=== PATIENT | female | born 1945 | race Caucasian/White ===

== ENCOUNTER → 2024-02-05 09:37 | Outpatient (REF) | payer OTHER, SELFPAY ==
--- NOTE | 2024-01-28 14:25 | WATCHMAN ---
Watchman
Wathcman Procedure
Referred by:: Santiago Sumner
Date of Referral:: 01/27/24
[id number] Score
Age in Years (65=0, 65-74=1, >/=75=2): > or = 75
Sex (Female=+1): Female
Congestive Heart Failure History (Yes=+1): Yes
Hypertension History (Yes=+1): Yes
Stroke/TIA/Thromboembolism History (Yes=+2): No
Vascular Disease History (Yes=+1): No
Diabetes Mellitus (Yes=+1): No
Score: 5
Anticoagulation Recommendations: Recommend anticoagulation (as validated in nonvalvular fib)
HASBLED Score
Hypertenstion (uncontrolled >160mmHG systolic): Yes
Renal disease (dialysis, transplant, Cr >2.26mg/dL or >200umol/L): No
Liver disease (cirrhosis or bilirubin >2x normal w/ AST/ALT/AP >3x normal: No
Stroke history: No
Prior major bleeding or predisposition to bleeding: Yes
Labile INR(unsable/high INRs,time in therapeutic range <60%): No
Age >65: Yes
Medication usage predisposing to bleeding(ASA, NSAIDS): No
Alcohol use (>/= 8 drinks/week): No
Score: 3
Risk: Alternatives to anticoagulation should be considered: Patient is at high risk for major bleeding
Electrocardiogram
Interpretation: abnormal
Heart Rate: 65
Rhythm: sinus
Interval: first degree heart block
Physician Visits
Client Services Director:: Burak
Date of Visit:: 01/27/24
Primary Animal Caretaker:: Santiago Sumner
Date of Visit:: 01/27/24
PCP:: Yousuf Bobo
Oral Anticoagulation
Post procedure anticoagulation plan:: Maintain full dose Xarelto 20 mg daily without aspirin until 3-month transesophageal echocardiogram and at that point if the device is well-seated with no significant leak we can stop Xarelto in favor of aspirin
81 mg daily. Additionally, she lives alone and would envision we would keep her overnight after the procedure
Plan
Plan:: 01/27/2024: Consult received.
01/28/2024: Spoke to patient. Obtained recent labs and faxed to CT scan department CT scan 02/04. Will plan to review at heart Team meeting on 02/09. Allowed for and answered questions.
== END ==
LOC: RAD 09:37
PROVIDERS: ATTENDING PHYSICIAN Internal Medicine Cardiovascular Disease; FAMILY PHYSICIAN Family Medicine
DX: I48.19 Other persistent atrial fibrillation (principal)
CPT/HCPCS: 75572; Q9967

== ENCOUNTER 2024-04-20 06:05 | Inpatient (IN) | payer OTHER, SELFPAY ==
[2024-04-15 11:36] VITALS: BMI 36.8
[2024-04-15 11:45] LABS: % Basophils 0.6 % (0-2); % Eosinophils 1.2 % (0-6); % Immature Granulocytes 0.3 % (0-0.5); % Lymphocytes 16.1 % (20.5-51.1); % Monocytes 6.7 % (1.7-9.3); % Neutrophils 75.1 % (42.2-75.2); Absolute Basophils 0.1 10^3/uL (0-0.2); Absolute Eosinophils 0.1 10^3/uL (0-0.7); Absolute Lymphocytes 1.4 10^3/uL (1.2-3.4); Absolute Monocytes 0.6 10^3/uL (0.1-0.6); Absolute Neutrophils 6.5 10^3/uL (1.4-6.5); Hematocrit 38.7 % (37.0-47.0); Hemoglobin 12.6 g/dL (12.0-16.0); Mean Corp Hgb Conc. 32.6 g/dL (33.0-37.0); Mean Corpuscular Hgb 28.5 pg (27.0-31.0); Mean Corpuscular Volume 87.6 fL (81.0-99.0); Mean Platelet Volume 11.1 fL (7.4-10.4); Nucleated Red Blood Cells % 0 %; Platelet Count 277 10^3/uL (130-400); Red Blood Cell Count 4.42 10^6/uL (4.20-5.40); Red Cell Dist. Width 13.8 % (11.5-14.5); White Blood Cell Count 8.6 10^3/uL (4.8-10.8)
[2024-04-15 11:53] LABS: INR 1.39; PT 17.1 Sec (11.4-14.6)
[2024-04-15 12:10] LABS: ALT (SGPT) 16 U/L (0-35); AST (SGOT) 20 U/L (14-36); Albumin 4.3 g/dl (3.5-5.0); Alkaline Phosphatase 87 U/L (38-126); Blood Urea Nitrogen 27 mg/dl (7-17); Calcium 9.8 mg/dl (8.4-10.2); Carbon Dioxide 21 mmol/L (22-30); Chloride 107 mmol/L (98-107); Estimated Creatinine Clearance 46 ml/min; Glucose 96 mg/dl (70-99); Potassium 4.3 mmol/L (3.5-5.1); Sodium 141 mmol/L (135-145); Total Bilirubin 0.5 mg/dl (0.2-1.3); Total Protein 6.5 g/dl (6.3-8.2); eGFR 51.75
[2024-04-20] VITALS (22 sets, daily range): BP systolic 139–181; BP diastolic 50–84; BMI 36.8
[2024-04-20 09:03] LABS: ACT-LR - POC 392 Seconds (116-155)
[2024-04-20] MEDS: ANESTHETIC LOZENGE 1 LOZENGE PO ×3 (11:11→18:31)
--- NOTE | 2024-04-20 13:03 | PTCARENOTE ---
patient received from the clinical genetics laboratory chief. Patient flat in bed. Right groin site CDI, site is soft. Doppler pedal pulses. Dependent edema. She is alert, awakens easily. Voice hoarse. SR with a 1st degree HB HR 72, BP 165/67, call pedersen in reach
--- NOTE | 2024-04-20 15:42 | PTCARENOTE ---
Figure 8 sutures removed, sterile dressing applied to right groin.
--- NOTE | 2024-04-20 16:10 | WATCHMAN.MD ---
Watchman Implant
-
WATCHMAN LEFT ATRIAL APPENDAGE CLOSURE DEVICE REPORT
Date: April 20, 2024
Referring Process Assistant: Dr Carmelo Andres
Primary Care Provider: Dr Yousuf Bobo
History:
She has a history of persistent atrial fibrillation for which she underwent PVI on February 16, 2019 and due to recurrences had repeat PVI 05/21/19. She underwent implantation of a loop recorder June 2023 at [facility] which is demonstrated low
burden recurrences of atrial fibrillation. She has also had recurrent lower GI bleeding and was referred for watchman left atrial appendage occlusion for which she has undergone extensive evaluation and presents today for watchman implantation.
Additionally she has medical history of COPD, heart failure with preserved ejection fraction, chronic kidney disease, hypertension, anemia, obstructive sleep apnea.
Watchman Team:
ADELAIDA: Dr Carmelo Thayer
Transesophageal echocardiogram could not be successfully performed despite several attempts which included attempts from cardiology, CT surgical anesthesia and gastroenterology.
Transseptal steam power plant operator: Dr Santiago Sumner M.D.
Implanter: No implantation attempted
Procedure: Attempted Watchman left atrial appendage closure.
Heparin was administered to goal ACT 350-400 seconds.
Given the transesophageal echo could not be passed despite multiple attempts. Implantation of Watchman device is imaged via intracardiac echocardiogram. Intracardiac ultrasound catheter was placed in the right atrium identifying the intraatrial
septum for transseptal puncture.
Transseptal puncture was performed By Dr Santiago Sumner utilizing RF energy [employer] system. This entailed advancing a sheath with dilator and wire into the superior vena cava and withdrawing both (monitoring intracardiac ultrasound, fluoroscopy
and tip pressure) with the tip oriented toward the atrial septum. The fossa ovalis was engaged (indicated by sudden displacement of the sheath tip as well as tenting of the fossa seen on intracardiac ultrasound). Left atrial catheter position was
confirmed by echocardiographic imaging, pressure monitoring (LA mean pressure) and fluoroscopy. The sheath was advanced over the dilator and positioned in the left atrium. The sheath and dilator were then withdrawn back into the right atrium and
the transseptal wire was left in position. Intracardiac echocardiogram and fluoroscopy were then utilized to follow the wire across the interatrial septum removing the ice catheter from the right atrium into the left atrium where multiple views of
the left atrial appendage were obtained and assessed. This sheath and dilator were then repositioned within the left atrium. Dilator was withdrawn. A 5 [place]an pigtail catheter was then advanced over the wire into the left atrium where angiogram
of the left atrial appendage was performed in several views. Despite a mid�mid transseptal the double curve sheath would not sit well at the ostium of the left atrial appendage despite multiple maneuvers and attempts. The double curve sheath was
then switched out for the single curve but still adequate positioning could not be obtained. At this point it was decided to reattempt transseptal puncture much lower on the interatrial septum. This was achieved and despite reintroduction of the
single curve sheath at a very low and mid to anterior position along the interatrial septum still adequate sheath position could not be obtained. There is no attempt to place a Watchman device. Consensus of the procedure group is that watchman
implantation in this particular patient with this anatomy is unlikely to be successful.
Impression:
- Attempted, but unable to pass transesophageal echoprobe
- Transeptal puncture.
- Intracardiac echocardiogram.
- Left atrial appendage angiogram
- No attempted deployment of Watchman left atrial appendage occlusion device.
Recommendations:
- Given inability to place watchman, maintain current anticoagulation strategy
- Have already discussed with patient's daughter and will later discussed with patient stand-alone CT surgical AtriCure left atrial appendage clipping as an alternative strategy.
If patient is agreeable we will arrange for outpatient consultation with CT surgery.
Continue cardiovascular care with Dr. De La Cruz
cc:
Dr Carmelo Andres
Dr Yousuf Bobo
[2024-04-20] MEDS: LIPITOR 10 MG PO (18:03)
--- NOTE | 2024-04-20 18:33 | PTCARENOTE ---
Patient out of bed, walked the bathroom, voided. Right groin has a scant amount of sanguinous drainage. Patient in the chair for dinner. Voice remains hoarse and throat is sore. Cepacol lozenges given as needed
--- NOTE | 2024-04-20 19:00 | PTCARENOTE ---
Received patient at change of shift. Patient awake, alert, and oriented, sitting in the chair eating dinner. Right groin site with some oozing. Area outlined. Soft, ecchymotic with no hematoma. Patient states she 'always bleeds.' BP 181/63, SB/NSR
50s-60s, 93% on room air. Patient c/o sore throat-- gave ice chips. Pt shared it helped. Discussed plan of care. Patient verbalized understanding. Call pedersen within reach.
[2024-04-20] MEDS: SYMBICORT 80/4.5 MCG INHALER 2 PUFF INH (19:26)
[2024-04-20] MEDS: SPIRIVA RESPIMAT 2.5 MCG 2 PUFF INH (19:27)
[2024-04-20] MEDS: ISMO 10 MG PO (19:53)
[2024-04-20] MEDS: APRESOLINE 100 MG PO (19:54)
--- NOTE | 2024-04-20 23:27 | PTCARENOTE ---
Patient's groin site oozing. RN held pressure for 15 minutes. Changed dressing with hemostasis pad, sterile gauze and tegaderm.
[2024-04-21 03:40] VITALS: BP 168/60
[2024-04-21 04:23] LABS: Hematocrit 35.1 % (37.0-47.0); Hemoglobin 11.5 g/dL (12.0-16.0); Mean Corp Hgb Conc. 32.8 g/dL (33.0-37.0); Mean Corpuscular Hgb 29.4 pg (27.0-31.0); Mean Corpuscular Volume 89.8 fL (81.0-99.0); Mean Platelet Volume 11.3 fL (7.4-10.4); Platelet Count 230 10^3/uL (130-400); Red Blood Cell Count 3.91 10^6/uL (4.20-5.40); Red Cell Dist. Width 13.5 % (11.5-14.5); White Blood Cell Count 12.5 10^3/uL (4.8-10.8)
[2024-04-21 04:31] LABS: Blood Urea Nitrogen 31 mg/dl (7-17); Calcium 9.4 mg/dl (8.4-10.2); Carbon Dioxide 20 mmol/L (22-30); Chloride 110 mmol/L (98-107); Estimated Creatinine Clearance 56 ml/min; Glucose 114 mg/dl (70-99); Magnesium 2.2 mg/dl (1.6-2.3); Potassium 4.5 mmol/L (3.5-5.1); Sodium 141 mmol/L (135-145); eGFR > 60.00
--- NOTE | 2024-04-21 05:21 | PTCARENOTE ---
Patient resting. Right groin site clean, dry, and intact. Soft, no hematoma. Ecchymotic.
--- NOTE | 2024-04-21 07:21 | W.PN.CARDCBS ---
Addendum entered and electronically signed by Santiago Sumner MD 04/21/24 10:43:
Patient seen, interviewed and examined by me.
Well-appearing, no acute distress
Regular rate and rhythm with normal S1 and S2, no S3 no S4. There is a grade 1/6 apical holosystolic murmur and no rubs. PMI is normally placed.
Lungs are clear to auscultation bilaterally without wheezes rales or rhonchi.
Abdomen soft nontender nondistended with normoactive bowel sounds
Extremities show trace pretibial edema bilaterally no clubbing or cyanosis.
Neurologic exam is grossly nonfocal.
I have discussed with the patient and her daughter the results of yesterday's procedure and our inability to even attempt to place a Watchman left atrial appendage occlusion device.
I have spoken to them both about considering alternative means to exclude the left atrial appendage. I discussed the possibility for stand-alone epicardial AtriCure and we will be referring her to cardiothoracic surgery for an outpatient
consultation.
In the meantime she should maintain uninterrupted oral anticoagulation unless he recurs with significant GI bleeding.
I also explained to her the inability for several different specialists to successfully place a transesophageal echocardiogram probe. She is not reported experiencing any difficulty with speech or swallow and it was felt by anesthesia that the
cause is likely simply a very small oral airway. Should she develop any dysphagia or odynophagia or any other concerns regarding this, she would need further evaluation.
All of her questions have been answered. She is stable for discharge to home today.
Also, of note I did check a right groin ultrasound post procedure which finds the common femoral artery is unremarkable with multiphasic waveforms. The common femoral vein is compressible and patent with expected phasicity. No hematomas,
pseudoaneurysm, or arteriovenous fistula.
Original Note:
Today's Communication / Plan
-
Resume xarelto tonight
CT surgery followup for BUCK clip
home today
Impression / Plan
-
PCP: Yousuf Bobo MD
CDY: Carmelo Andres MD
78 y/o, PMH of persistent atrial fibrillation for which she underwent PVI on February 16, 2019 and due to recurrences had repeat PVI 05/21/19. She underwent implantation of a loop recorder June 2023 at [facility] which is demonstrated low burden
recurrences of atrial fibrillation. She has also had recurrent lower GI bleeding and was referred for watchman left atrial appendage occlusion for which she has undergone extensive evaluation and presents today for watchman implantation.
04/20- Procedure- ADELAIDA could not be successfully performed despite several attempts which included attempts from cardiology, CT surgical anesthesia and gastroenterology.
Watchman implant aborted
IMPRESSION:
Persistent AFib w/PVI x2 (01/2019, 04/2019)
Recurrent LGI bleeding
Attempted Watchman device implant, 04/20/24
Chronic diastolic HFpEF
HTN
HLD
COPD
LUIZ
Ambulatory dysfunction/gait disturbance
Chronic BLE lymphedema
R BrCA, s/p lumpectomy/LND (2015)
PLAN:
Attempted but unable to pass ADELAIDA probe for Watchman implant, procedure aborted
Tele- NSR w/1st degAVB, intermittent AFib
right groin with small HT post suturing, with some expansion in recovery
Groin US with small HT but no pseudoaneurysm- stable today
Xarelto held last evening- will resume tonight
Continue other meds as before
CT surgery consult for possible BUCK clipping- appt made 04/28 at 9AM w/Mendoza
Modestly elevated BP overnight- has not had meds for 2 days- RN giving them now and will monitor
Followup with Dr. Andres as scheduled
home today
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
Subjective
Date of Service: April 21, 2024
Denies cp/palps/dyspnea
oob ambulating
groin site without pain
Objective
Labs:
04/21/24 03:53
04/21/24 03:54
Labs
Hgb 11.5 g/dL (12.0-16.0) L 04/21/24 03:53
Hct 35.1 % (37.0-47.0) L 04/21/24 03:53
Plt Count 230 10^3/uL (130-400) 04/21/24 03:53
PT 17.1 Sec (11.4-14.6) H 04/15/24 10:40
INR 1.39 04/15/24 10:40
Sodium 141 mmol/L (135-145) 04/21/24 03:54
Potassium 4.5 mmol/L (3.5-5.1) 04/21/24 03:54
BUN 31 mg/dl (7-17) H 04/21/24 03:54
Creatinine 0.9 mg/dL (0.6-1.0) 04/21/24 03:54
Glucose 114 mg/dl (70-99) H 04/21/24 03:54
Vital Signs and I&O:
Vital Signs
Temp Pulse Resp BP Pulse Ox
97.8 F 47 18 168/60 92
04/21/24 03:43 04/21/24 06:00 04/21/24 03:43 04/21/24 03:40 04/21/24 03:43
Vital Signs
Temp Pulse Resp BP Pulse Ox
97.8 F 47 18 168/60 92
04/21/24 03:43 04/21/24 06:00 04/21/24 03:43 04/21/24 03:40 04/21/24 03:43
Intake & Output
04/19/24 04/20/24 04/21/24 04/22/24
06:59 06:59 06:59 06:59
Intake Total 480 / 480
Output Total 200 / 200
Balance 280 / 280
Physical Exam
Physical Exam
AAOx3, MAEE
RRR S1 S2 no murmurs
CTA bilat, non labored
soft abd, + bs
right groin site w/ecchymosis but non tender, soft, no oozing
bilat extremities w/chronic lymphedma and erythema as before, doppler pulses
[2024-04-21] MEDS: SYMBICORT 80/4.5 MCG INHALER 2 PUFF INH (07:29)
[2024-04-21] MEDS: SPIRIVA RESPIMAT 2.5 MCG 2 PUFF INH (07:29)
[2024-04-21 07:41] VITALS: BP 151/58
[2024-04-21] MEDS: ISMO 10 MG PO (08:16)
[2024-04-21] MEDS: APRESOLINE 100 MG PO (08:16)
[2024-04-21] MEDS: COZAAR 100 MG PO (08:16)
[2024-04-21] MEDS: ARIMIDEX 1 MG PO (08:16)
[2024-04-21] MEDS: FEOSOL 325 MG PO (08:16)
[2024-04-21] MEDS: PROCARDIA XL (EXTENDED RELEASE) 30 MG PO (08:16)
--- NOTE | 2024-04-21 09:59 | W.DS.TRANS ---
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
-
Discharge Instructions:
Discharge Diagnosis/Procedures AFib, s/p attempted Watchman device implant
Diet Low Cholesterol
Driving Restrictions No driving for 24 hours
Instructions:
Stand-Alone Forms: DC Instructions- Cath/EP Lab
Changes to Home Medications: No
Discharge Medications:
DC Medications w/original date entered in [employer]
anastrozole 1 mg tablet 1 mg PO DAILY 02/16/19
bumetanide 1 mg tablet 1 mg PO SUTUTHSA 04/12/24
ferrous sulfate 325 mg (65 mg iron) tablet 325 mg PO DAILY 04/12/24
fluticasone fur. 100 mcg-umeclid 62.5 mcg-vilant 25 mcg inhalat.powder (Trelegy Ellipta) 1 inh inhalation DAILY 04/12/24
hydralazine 100 mg tablet 100 mg PO BID 04/12/24
isosorbide mononitrate 10 mg tablet 10 mg PO BID 04/12/24
losartan 100 mg tablet 100 mg PO DAILY 04/12/24
lovastatin 40 mg tablet 40 mg PO QPM 04/12/24
nifedipine 30 mg tablet,extended release 30 mg PO DAILY 04/12/24
rivaroxaban 20 mg tablet (Xarelto) 20 mg PO QPM 04/12/24
Home Medication Changes
Pending Results: No
[2024-04-21 11:15] VITALS: BP 128/56
--- NOTE | 2024-04-21 13:09 | CM ---
CM following for DC planning needs.
Pt. for DC today; there are no identified DC needs.
Pt. is indep. at baseline.
Plan is for home, no needs.
== END 2024-04-21 11:36 | disposition home or self-care (01) | DRG 309 ==
LOC: IVU 06:05
PROVIDERS: Nurse Practitioner; ADMITTING PHYSICIAN Internal Medicine Cardiovascular Disease; FAMILY PHYSICIAN Family Medicine
DX: I48.19 Other persistent atrial fibrillation (principal); I13.0 Hypertensive heart and chronic kidney disease with heart failure and stage 1 through stage 4 chronic kidney disease, or unspecified chronic kidney disease; I50.32 Chronic diastolic (congestive) heart failure; D63.1 Anemia in chronic kidney disease; D50.9 Iron deficiency anemia, unspecified; E04.2 Nontoxic multinodular goiter; J44.9 Chronic obstructive pulmonary disease, unspecified; N18.30 Chronic kidney disease, stage 3 unspecified; I48.92 Unspecified atrial flutter; I44.0 Atrioventricular block, first degree; E78.5 Hyperlipidemia, unspecified; G47.33 Obstructive sleep apnea (adult) (pediatric); I89.0 Lymphedema, not elsewhere classified; K44.9 Diaphragmatic hernia without obstruction or gangrene; R26.2 Difficulty in walking, not elsewhere classified; K57.30 Diverticulosis of large intestine without perforation or abscess without bleeding; Z53.8 Procedure and treatment not carried out for other reasons; Z79.01 Long term (current) use of anticoagulants; Z79.899 Other long term (current) drug therapy; Z87.19 Personal history of other diseases of the digestive system; Z85.3 Personal history of malignant neoplasm of breast; Z92.3 Personal history of irradiation; Z85.820 Personal history of malignant melanoma of skin
CPT/HCPCS: 33340; 36415; 80048; 80053; 83735; 85025; 85027; 85347; 85610; 86850; 86900; 86901; 87070; 93005; 93312; 93355; 93926; 94640; C1759; C1892; C1894; Q9967

== ENCOUNTER 2024-05-21 05:00 | Inpatient (IN) | payer OTHER, SELFPAY ==
[2024-05-18 08:33] VITALS: BMI 35.9
[2024-05-18 09:09] LABS: % Basophils 0.7 % (0-2); % Eosinophils 2.7 % (0-6); % Immature Granulocytes 0.7 % (0-0.5); % Lymphocytes 19.1 % (20.5-51.1); % Monocytes 6.3 % (1.7-9.3); % Neutrophils 70.5 % (42.2-75.2); Absolute Basophils 0.1 10^3/uL (0-0.2); Absolute Eosinophils 0.2 10^3/uL (0-0.7); Absolute Immature Granulocytes 0.1 10^3/uL (0-0.05); Absolute Lymphocytes 1.4 10^3/uL (1.2-3.4); Absolute Monocytes 0.5 10^3/uL (0.1-0.6); Absolute Neutrophils 5.2 10^3/uL (1.4-6.5); Hematocrit 37.4 % (37.0-47.0); Hemoglobin 12.2 g/dL (12.0-16.0); Mean Corp Hgb Conc. 32.6 g/dL (33.0-37.0); Mean Corpuscular Hgb 29.2 pg (27.0-31.0); Mean Corpuscular Volume 89.5 fL (81.0-99.0); Mean Platelet Volume 10.7 fL (7.4-10.4); Nucleated Red Blood Cells % 0 %; Platelet Count 306 10^3/uL (130-400); Red Blood Cell Count 4.18 10^6/uL (4.20-5.40); Red Cell Dist. Width 14.6 % (11.5-14.5); White Blood Cell Count 7.4 10^3/uL (4.8-10.8)
[2024-05-18 09:18] LABS: INR 1.85; PT 21.5 Sec (11.4-14.6)
[2024-05-18 09:19] LABS: APTT 46.1 Sec (23.4-35.0)
[2024-05-18 10:01] LABS: ALT (SGPT) 15 U/L (0-35); AST (SGOT) 19 U/L (14-36); Albumin 3.9 g/dl (3.5-5.0); Alkaline Phosphatase 86 U/L (38-126); Blood Urea Nitrogen 24 mg/dl (7-17); Calcium 9.3 mg/dl (8.4-10.2); Carbon Dioxide 20 mmol/L (22-30); Chloride 108 mmol/L (98-107); Direct Bilirubin 0.1 mg/dl (0.0-0.4); Estimated Creatinine Clearance 50 ml/min; Glucose 108 mg/dl (70-99); Potassium 4.1 mmol/L (3.5-5.1); Sodium 141 mmol/L (135-145); Total Bilirubin 0.7 mg/dl (0.2-1.3); Total Protein 6.3 g/dl (6.3-8.2); eGFR 58.02
[2024-05-18 10:19] LABS: Urine Albumin Negative (Neg - Trace); Urine Bilirubin Negative (Negative); Urine Character Clear (Clear); Urine Color Yellow; Urine Glucose Negative (Negative); Urine Ketone Negative (Negative); Urine Leukocyte 1+ (Negative); Urine Nitrite Negative (Negative); Urine Occult Blood Negative (Negative); Urine Specific Gravity 1.005 (<1.030); Urine Urobilinogen Negative (Neg - 1+)
[2024-05-18 10:27] LABS: Glycohemoglobin (HgbA1c) 5.3 % (4.0-5.6)
[2024-05-18 10:46] LABS: Urine Bacteria Few (Negative); Urine Urothelial Cell 0-2 /LPF (FEW)
--- NOTE | 2024-05-18 11:46 | CM ---
spoke to pt in PAT's, we discussed preop BUCK. she is prev indep, lives at [facility] in an indep apt alone. her daughter will be with her. she uses a walker. she is agreeable to a f/u visit rom the ct transitional care nurse after dc. she has
the ct surgery educ book, soap and instructions.
plan is for BUCK robotic 05/21. cm role explained and all questions answered.
[2024-05-21] VITALS (10 sets, daily range): BP systolic 117–190; BP diastolic 42–92; BMI 35.3
[2024-05-21] MEDS: MAGNESIUM OXIDE 500 MG PO (05:31)
[2024-05-21] MEDS: PROTONIX 40 MG PO (05:31)
[2024-05-21] MEDS: BACTROBAN 2% OINTMENT 1 APPLIC NASAL ×2 (05:31→19:47)
--- NOTE | 2024-05-21 05:59 | W.PN.UPDATE ---
Update Note
Progress Note Update
-preop B-yocasta was not given due to COPD
--- NOTE | 2024-05-21 06:06 | PTCARENOTE ---
Patient arrived on unit with daughter. Changed into gown with minimal assistance, scant body hair for clipping. AOx3, answered admission questionnaire appropriately. BP elevated, CVPA made aware, Hydralazine PO pending, see AUG. PETRA restriction for
previous lumpectomy/lymph node involvement, wrist band applied. +4 B/L LE pitting edema, weeping, blistered; MASD in groin and buttocks. CHG bath performed, awaiting call from CVOR.
[2024-05-21] MEDS: APRESOLINE 100 MG PO ×2 (06:13→18:32)
--- NOTE | 2024-05-21 06:20 | W.CVOR.SURPR ---
CVOR Surgeon Immed Pre Op
-
I have examined this patient prior to performance of the scheduled procedure.
The patient's condition is unchanged from the time of the dictated/written History and
Physical and the patient is able to undergo the scheduled procedure.
RA BUCK E, discussed with her EP physician, given such a low burden of afib (<1%) and only one episode post ablation, I do not plan on performing additional ablation today.
[2024-05-21 09:14] LABS: Urine Albumin Negative (Neg - Trace); Urine Bilirubin Negative (Negative); Urine Character Clear (Clear); Urine Color Yellow; Urine Glucose Negative (Negative); Urine Ketone Negative (Negative); Urine Leukocyte Negative (Negative); Urine Nitrite Negative (Negative); Urine Occult Blood Negative (Negative); Urine Urobilinogen Negative (Neg - 1+); Urine pH 6.5 (5.0-9.0)
--- NOTE | 2024-05-21 09:31 | CM ---
Patient in OR today for planned CT Surgery.
CM following for DC planning needs.
Reviewed initial assessment. [facility] [address] [facility] Dtr. will be staying with patient upon DC. Pt. is ambulatory with use of a RW at baseline.
Plan is for DC to home w/ CT Transitional Care RN once medically stable. Will follow.
--- NOTE | 2024-05-21 10:06 | W.PN.CT.SURG ---
CT Surgery Operative Note
-
CARDIAC SURGERY OPERATIVE REPORT
Preoperative Diagnosis: Atrial fibrillation on anticoagulation, intolerant, unable to perform Watchman Procedure
Postoperative Diagnosis: Same
Procedure(s) Performed:
1. Robotic assisted left atrial appendage exclusion (40mm Pro2 Clip)
Date of Surgery: 05/21/24
Comorbidities:
1. History of persistent atrial fibrillation status post endovascular ablation, successful
2. On chronic anticoagulation, intolerant with recurrent GI bleeds
3. COPD, moderately disease
4. LUIZ
5. History of CHF with chronic peripheral edema and volume overload
6. Basal cell carcinoma of the face
7. Melanoma of the left arm
8. Morbidly obese with BMI of greater than 30
9. Hypertension
10. Hyperlipidemia
Attending Surgeon: Alex Mendoza MD, MS
Assistants: Rhea Mullins PA-C (present and necessary to team assistant, exchanging robotic instruments, retraction, suction, exposure, suture management, and wound closure under my direction)
Anesthesiology: Ayaan Gonzalez MD and Kathy Wilks CRNA
Scrub and Circulating RNs: Karo Owens, MARIA ISABEL, Sixto Velazquez RN
Elementary Esl Teacher: John Gurrola CCP
Anesthesia: GETA
EBL: per perfusion records
Implants:
40mm AtriCure Pro 2 BUCK Clip, SN [id number]
Products: None
Indication(s) for Procedures: This is a 78-year-old female who has a history of persistent atrial fibrillation. She is status post ablation with good result. Following the procedure her Holter monitor demonstrated a atrial fibrillation burden of
less than 1% and only 1 isolated single episode that resolved. She was planned for a Watchman procedure however given her anatomy the ADELAIDA probe was unable to be passed and so the procedure was aborted as it could not be done blindly. She is
referred to my office for consideration of a left atrial appendage exclusion given her history of GI bleeds that were recurrent and her intolerance of anticoagulation. Multidiscipline discussion with her carbon grinder physician came up with
the overall consensus that given her low burden of atrial elation and single isolated episode of A-fib, that convergent procedure was not indicated here. We discussed the risk and benefits of this procedure and she is aware that there is no STS
category for this type of surgery.
Findings: Her left atrial appendage was exposed via posterior phrenic pericardiotomy. The device was passed through one of the 12 mm ports and verified to be flush to the base before deploying. As her ADELAIDA preoperatively was unable to be performed
given her anatomy we only had visual verification that it was at the base. Otherwise did not require any blood products or inotropic support and was hypertensive throughout the procedure even after receiving her home dose of medications
preoperatively.
Description of Procedure: The patient was taken to the operating room. Their identity and procedure to be performed were verified and they were positioned supine on the operating table. Induction via general anesthesia with endotracheal intubation
was performed and central venous access and arterial monitoring were inserted. A preoperative transesophageal echocardiogram was performed to assess cardiac function and valvular function. The patient was then prepped and draped from chin to feet in
a sterile fashion and positioned with left side bumped up and left arm down. A preoperative time-out was performed with all members of the team present. A Veress needle was used to enter the chest after stopping ventilation with the left lung
verified by anesthesia. We started with slow pressure insufflation which they tolerated. An 8 mm port was inserted in the fourth intercostal space laterally and a camera was inserted verifying no intrathoracic iatrogenic injuries. 2 additional
ports (8 mm and 12mm air seal) were placed along the midaxillary line with the 12mm airseal port toward the diaphragm and bariatric 8mm working through it - this would later service as my device port for the BUCK clip. The robotic platform was then
docked. A posterior pericardiotomy was created to facilitate drainage and extended up past the hilum towards the pulmonary artery in order to provide exposure of the left atrial appendage. The cephalad robotic arm was then inserted into the
pericardium and elevated anteriorly in order to expose the target site. I then undocked the lower arm that was going through the air seal port and placed a 40 mm device through this port. With gentle manipulation and opening of the device, the
left atrial branch was able to be encircled. Rotating the device clockwise and counterclockwise I was able to verify that the base of the appendage was fully flush to the clip. Once satisfied, respiration was held and device were deployed. I then
used an endoscopic kit of device in order to manipulate the appendage to verify that the base was fully occlusive. The robot platform was then undocked and a 19F caty drain inserted into the left chest. Local analgesia was administered to the
surgical sites. The subcutaneous, dermis and epidermis were closed in layers in a running fashion. The skin wound was cleansed and dressed.
All instrument, sponge, and needle counts were confirmed to be correct x 2 at the end of the operation. The patient was transferred to the cardiac intensive care unit extubated in critical but stable condition.
I, Dr. Alex Mendoza, was present, scrubbed for, and performed all critical elements of this procedure.
Alex Mendoza MD, MS
Cardiothoracic Surgeon
[facility]
This operative dictation was created using the [employer] dictation system. Please excuse any grammatical, typographical, or 'sound alike' errors
[2024-05-21 10:32] LABS: Glucose - Point of Care 212 mg/dl (70-99)
--- NOTE | 2024-05-21 10:42 | W.PN.UPDATE ---
Update Note
Progress Note Update
78-year-old female is electively admitted for left atrial appendage clip due to permanent A-fib and history of GI bleeding on anticoagulation. History of aborted Watchman procedure due to inability to pass ADELAIDA probe.
IV fluids: 400
U.O.:� 150
Blood:� none
Wires:� none
Gtts: NTG
Sedatives:� none
�
NEURO: drowsy, VELAZQUEZ and answers simple questions, pupils +2mm B/L
RESP: 97% SpO2 on CAM (extubated in OR), left pleural (10cc on arrival) chest tubes to -20cm suction. Sanguineous drainage
CV: RRR +S1, S2, no S3, no�rub, no murmur. Dermabond to median sternotomy. LIJ cordis intact
ABD: round, soft, no BS
EXT: chronic B/L LE lymphedema w/chronic vensis stasis skin pitting & discoloration, +2/4 DP pulses B/L, no femoral bruit, right radial A-line intact
: Peralta with clear yellow urine
�
A/P: POD #0 s/p robotic assisted left atrial appendage exclusion (#40mm Pro2 Clip)
Normal EF�from TTE 04/10/23
- Lasix 40mg IV now
# Permanent Atrial fibrillation
- will order CTA chest 05/22 (to verify clip placement) if creatinine stable
- Results of CTA will determine need for further anticoagulation
# HTN
- resume Nifedipine, Imdur, hydralazine
# Hx GI bleed
- continue Protonix
# Chronic B/L lower extremity edema
- pneumatic compression sleeves while in bed
- resume Bumex for fluid retention
# COPD
- continue Trelegy Elipta
�
�
�
[2024-05-21 10:44] LABS: B.E. -5.4 mmol/L; HCO3 20.6 mmol/L (21-28); Hematocrit 36.8 % (37.0-47.0); Hemoglobin 11.7 g/dL (12.0-16.0); O2 Saturation % 98.5 % (94-98); PCO2 41 mmHg (32-35); PO2 106 mmHg (83-108); Platelet Count 269 10^3/uL (130-400); Sodium 137 mMOL/L (136-145); pH 7.31 (7.35-7.45)
[2024-05-21] MEDS: ANCEF 10 IV ×2 (10:44)
[2024-05-21] MEDS: NSS 500 IV (10:45)
[2024-05-21 10:51] LABS: INR 1.02; PT 13.7 Sec (11.4-14.6)
[2024-05-21 10:52] LABS: APTT 29.1 Sec (23.4-35.0)
[2024-05-21 10:53] LABS: Blood Urea Nitrogen 25 mg/dl (7-17); Estimated Creatinine Clearance 49 ml/min; Glucose 204 mg/dl (70-99); Magnesium 2.1 mg/dl (1.6-2.3)
[2024-05-21] MEDS: NOVOLIN R INSULIN INFUSION 100 IV (10:59)
[2024-05-21] MEDS: CARDENE 200 IV (11:13)
[2024-05-21] MEDS: LASIX 40 MG IV (11:14)
--- NOTE | 2024-05-21 11:15 | PTCARENOTE ---
Patient received from [facility] s/p BUCK exclusion. NSR via cm, SaO2 @ 96% on simple mask 6L. LIJ Cordis/Slic catheter w/CVP, L radial arterial lines present - leveled, flushed, and calibrated w/good waveforms returned. Peralta catheter to gravity. L
pleural (lateral) chest tube placed to -20cm suction, no air leak noted. All procedural sites stable. Dr. Mendoza to bedside. See work list for full assessment, interventions performed, and intravenous infusions and titrations.
[2024-05-21 12:02] LABS: Glucose - Point of Care 185 mg/dl (70-99)
--- NOTE | 2024-05-21 12:21 | CON.INTV ---
Consultation
Consultation Request
Date/Time Consultation Requested: 05/21/2024-12:30 PM
Date/Time Consultation Performed: 05/21/2024-12:30 PM
Requesting Provider: Cardiovascular surgery
Performing Provider: Dr. Banerjee
Reason for Consultation: Postop ventilator/critical care management
Medical History
-
Chief Complaint: Atrial fibrillation
History of Present Illness:
78-year-old female with a history of COPD, obstructive sleep apnea, morbid obesity, hypertension and hyperlipidemia who has persistent atrial fibrillation status post ablation on chronic anticoagulations intolerant due to recurrent GI bleeds and not
a Watchman procedure candidate underwent robotic assisted left atrial appendage exclusion-physician president consulted for postoperative ventilator/critical care management 05/21/2024. Patient extubated, very groggy, no complaints of shortness of breath,
chest pain, chest tightness, abdominal pain or legs weakness
Past Medical History
Past Medical History: None (Hypertension. Hyperlipidemia. Morbid obesity. LUIZ. COPD. Atrial fibrillation/ablation/anticoagulation intolerance due to recurrent GI bleeds. Recurrent GI bleeds. Melanoma left arm. Breast cancer/lumpectomy 2016)
Social History
Tobacco: Non-smoker
Alcohol: None (Rare)
Drug: None
Personal:
Occupational Exposures: No known asbestos exposure
Environmental Exposures: No known tuberculosis exposure
Family History
Family History: Reviewed & Not Pertinent
Allergies / Home Medications
Allergies
Allergy/AdvReac Type Severity Reaction Status Date / Time
flecainide Allergy Severe shaking,tir Verified 05/14/24 09:23
edness,weak
ness
Home Medications
�Medication �Instructions �Recorded �Confirmed �Last Taken �Type
anastrozole 1 mg tablet 1 mg PO DAILY Cancer 02/16/19 05/14/24 04/19/24 09:00 History
bumetanide 1 mg tablet 1 mg PO SUTUTHSA Fluid 04/12/24 05/14/24 04/19/24 09:00 History
Retention/Swelling
ferrous sulfate 325 mg (65 mg 325 mg PO DAILY Supplement 04/12/24 05/14/24 04/19/24 09:00 History
iron) tablet
fluticasone fur. 100 mcg-umeclid 1 inh inhalation DAILY 04/12/24 05/14/24 04/19/24 10:00 History
62.5 mcg-vilant 25 mcg Lung/Breathing Issues
inhalat.powder (Trelegy Ellipta)
hydralazine 100 mg tablet 100 mg PO BID Blood Pressure 04/12/24 05/14/24 04/19/24 18:00 History
isosorbide mononitrate 10 mg tablet 10 mg PO BID Blood Pressure 04/12/24 05/14/24 04/19/24 18:00 History
losartan 100 mg tablet 100 mg PO DAILY Blood Pressure 04/12/24 05/14/24 04/19/24 09:00 History
lovastatin 40 mg tablet 40 mg PO QPM High Cholesterol 04/12/24 05/14/24 04/19/24 06:30 History
nifedipine 30 mg tablet,extended 30 mg PO DAILY Blood Pressure 04/12/24 05/14/24 04/19/24 09:00 History
release
rivaroxaban 20 mg tablet (Xarelto) 20 mg PO QPM Blood Clot 04/12/24 05/14/24 04/19/24 18:00 History
Prevention/Tx
Review of Systems
-
Unable to Obtain full review of systems at this time due to: Other (Per HPI)
Vitals / Labs / Diagnostic Testing
Vital Signs
Temp Pulse Resp BP Pulse Ox
95.3 F L 65 14 121/46 94
05/21/24 12:00 05/21/24 12:00 05/21/24 12:00 05/21/24 12:00 05/21/24 12:00
Lab Data
05/21/24 10:30
Laboratory Results
05/21/24
10:30
PT 13.7
INR 1.02
APTT 29.1
pH 7.31 L
pCO2 41 H
pO2 106
HCO3 20.6 L
O2 Delivery Level
Microbiology
05/18/24 08:40 Nose MRSA Screen - Final
No Methicillin Resistant Staphylococcus aureus isolated.
05/18/24 09:58 Urine Urine Culture - Final
No Significant Growth
Diagnostic Testing:
Physical Exam
-
Exam:
Well-nourished and well-developed in no apparent distress
HEENT-atraumatic, normocephalic,
Heart-regular rate and rhythm-no murmurs, rubs or gallops
Chest-clear to auscultation, no wheezes, crackles, median sternotomy bandage is not removed
Abdomen soft nondistended
Extremities-no cyanosis, clubbing, edema and good peripheral pulses
Integument-intact, no rashes, lesions or ecchymosis
Neurologically alert and oriented moving extremities, nonfocal
Assessment
-
78-year-old female with a history of COPD, obstructive sleep apnea, morbid obesity, hypertension and hyperlipidemia who has persistent atrial fibrillation status post ablation on chronic anticoagulations intolerant due to recurrent GI bleeds and not
a Watchman procedure candidate underwent robotic assisted left atrial appendage exclusion-physician president consulted for postoperative ventilator/critical care management 05/21/2024.
Persistent atrial fibrillation-intolerant to chronic anticoagulation due to recurrent GI bleeds and failed/aborted Watchman procedure (inability to pass ADELAIDA probe)
Status post robotic assisted left atrial appendage exclusion-Dr. Mendoza-05/21/2024
Mild anemia-hemoglobin 11.7
Hyperglycemia
Conditions present prior to admission:
Hypertension.
Hyperlipidemia.
Morbid obesity.
LUIZ-CPAP intolerant-stopped wearing 08/2023
COPD-never smoker, suspect chronic asthma, maintained on Trelegy 100 and albuterol
Atrial fibrillation/ablation/anticoagulation intolerance due to recurrent GI bleeds.
Recurrent GI bleeds.
Melanoma left arm.
Breast cancer/lumpectomy 2016
Plan
Ventilator settings reviewed
FiO2 will be weaned
Minute ventilation will be adjusted
Arterial blood gases will be monitored
Spontaneous breathing trial will be attempted with hopeful extubation after anesthesia/sedation wear off
Pressors/antihypertensive/inotropes/diuretics will be provided as needed
Monitor chest tube output
Monitor hemoglobin
Monitor platelet count and coags
Transfuse blood product if needed
CT surgery following chest tubes
Monitor blood sugar
Insulin drip per protocol
Aspiration precautions
VAP prevention protocol
DVT prophylaxis
Early nutrition
Early mobilization
Reviewed with daughter at the bedside 05/21/[address] Franco as a new patient 05/13/2024-previously followed by Dr. Peoples-recommended to follow back up August 2024
Critical care statement: A total of 55 minutes of critical care time was provided for this patient today. This includes management of ventilator, spontaneous breathing trial, arterial blood gases, pressors, of unstable vital signs, evaluation of
the patient at bedside, reviewing the patient's pertinent medical records including radiographs, microbiology, laboratory evaluations, and discussion with primary team and critical care nursing.
Diagnostic data:
Chest x-ray 05/21/2024-no evidence for significant pneumothorax, mild subcutaneous emphysema
Pulmonary function studies-05/13/24: Spirometry demonstrated mild restrictive lung disease.� The forced vital capacity was 1.65 L or 66% of predicted.� The FEV1 was 1.36 L or 79% of predicted.� The FEV1/FVC ratio was 82%.� Lung volumes revealed
moderate restrictive lung disease the total lung capacity was 2.88 L or 62% of predicted.� The diffusing capacity was moderately reduced at 7.7 or 41% of predicted.� This was consistent with a moderate gas exchange deficit. When adjusted for
alveolar volume, the diffusing capacity improves to 66% predicted.�Compared to 10/2023, the forced vital capacity has improved from 1.56 L to 1.65 L.� The FEV1 has improved from a 1.23 L to 1.36 L.
6 minute walk test-05/13/24: Resting saturation was 100%.� Lowest saturation was 94% ambulating 525 feet.� Maximum heaart rate waas 117 bpm.� Her perceived dyspnea was negligible and 0 on a 10 point dyspnea scale
Chest x-ray-09/17/20: No acute lung disease..
CT chest ([facility]) 02/05/24: Images reviewed.Enlargement of the main pulmonary artery suggesting pulmonary hypertension.� Mild mediastinal and bilateral hilar lymphadenopathy.Mild bilateral lung hyperinflation.Severe mosaic attenuation pattern
throughout both lungs.� No airspace opacity..
Echocardiogram-04/10/23: Normal LVEF 65-70% with mild to moderate mitral regurgitation mild to moderate tricuspid regurgitation.� PA pressures estimated at 75 mmHg.� (PA pressures were 65 mmHg 10/29/18 echo.
Data Reviewed
-
PFT: Report reviewed by me
EKG: Report reviewed by me
Radiology: Image personally visualized and interpreted and Report reviewed by me
CT Scan: Report reviewed by me
Medical Tests (Nuc Med, Echo etc): Report reviewed by me
Labs: Labs reviewed by me
Old Records: Reviewed
Critical Care Time (in minutes): 55
--- NOTE | 2024-05-21 12:25 | PTCARENOTE ---
JONATAN Richar updated to HR (transient bradycardia).
[2024-05-21 12:59] LABS: Glucose - Point of Care 122 mg/dl (70-99)
[2024-05-21] MEDS: LOW STRENGTH ASPIRIN 81 MG PO (13:57)
[2024-05-21] MEDS: TYLENOL 1000 MG PO ×2 (13:57→21:17)
[2024-05-21 14:03] LABS: Glucose - Point of Care 81 mg/dl (70-99)
[2024-05-21 15:01] LABS: Glucose - Point of Care 101 mg/dl (70-99)
[2024-05-21 15:18] LABS: Hematocrit 35.8 % (37.0-47.0); Hemoglobin 11.3 g/dL (12.0-16.0); Platelet Count 213 10^3/uL (130-400)
[2024-05-21 15:28] LABS: Blood Urea Nitrogen 28 mg/dl (7-17); Calcium 8.8 mg/dl (8.4-10.2); Carbon Dioxide 23 mmol/L (22-30); Chloride 108 mmol/L (98-107); Estimated Creatinine Clearance 45 ml/min; Glucose 102 mg/dl (70-99); Sodium 144 mmol/L (135-145); eGFR 51.75
--- NOTE | 2024-05-21 15:30 | W.PN.CARDCBS ---
Addendum entered and electronically signed by Nicolas Evans MD 05/21/24 17:19:
I saw and examined the patient.
The Human Service Worker's note was reviewed and I agree with the note.
Comment:
GEN: No distress, awake, Ox3
HEENT: supple, anicteric, mmm
LUNGS: CTA, no wheezes/rales
CV: Reg, S1/S2, no murmur
ABD: soft, BS+, NT/ND
EXT: No edema
NEURO: Gross non-focal
SKIN: No rash
Plan:
Doing well status post left atrial appendage clip.
Patient was unable to have a ADELAIDA.
Plan is to check CTA in a.m. to assess for leak
Continue metoprolol, Imdur, hydralazine, and nifedipine.
Original Note:
Today's Communication / Plan
-
Continue post op care
CTA in AM to assess need for AC
Impression / Plan
-
PCP: Dr. Bobo
Maple Sugar Maker: Dr. Andres ([facility], [place])
Impression:
s/p BUCK exclusion w/ #40 mm Pro2 Clip
Persistent AFib
s/p PVI x2 (01/2019, 04/2019)
h/o aborted watchman implant 04/20/24
Chronic diastolic HFpEF
HTN
HLD
COPD
LUIZ
Ambulatory dysfunction/gait disturbance
Chronic BLE lymphedema
R BrCA, s/p lumpectomy/LND (2015)
Plan:
-Previously attempted Watchman procedure 04/20/2024, however ADELAIDA probe was unable to pass despite multiple attempts and therefore procedure was aborted. Now s/p BUCK exclusion 05/21/2024 w/ Dr. Menodza.
-Given difficulty previously w/ ADELAIDA, it was not attempted, so plan is for CTA of chest to assess if occlusive.
-Results of CTA will determine need for ongoing anticoagulation.
-Hgb stable at 11.3
-Given a single dose of IV lasix following procedure. CXR with interstitial edema. Follow response
-On review of tele, remains in SR.
-Post op EKG SR 1st degree AV block, stable compared to prior.
-Continue hydralazine, Isosorbide, nifedipine.
-Follow up w/ Dr. Andres
Progress Note - Maple Sugar Maker
Subjective
Date of Service: May 21, 2024
No complaints.
Objective
Labs:
05/21/24 15:01
05/21/24 15:01
Labs
Hgb 11.3 g/dL (12.0-16.0) L 05/21/24 15:01
Hct 35.8 % (37.0-47.0) L 05/21/24 15:01
Plt Count 213 10^3/uL (130-400) D 05/21/24 15:01
PT 13.7 Sec (11.4-14.6) 05/21/24 10:30
INR 1.02 05/21/24 10:30
APTT 29.1 Sec (23.4-35.0) 05/21/24 10:30
Sodium 144 mmol/L (135-145) 05/21/24 15:01
Potassium 4.0 mmol/L (3.5-5.1) 05/21/24 15:01
BUN 28 mg/dl (7-17) H 05/21/24 15:01
Creatinine 1.1 mg/dL (0.6-1.0) H 05/21/24 15:01
Glucose 102 mg/dl (70-99) H 05/21/24 15:01
Vital Signs and I&O:
Vital Signs
Temp Pulse Resp BP Pulse Ox
98 F 68 16 131/56 97
05/21/24 15:04 05/21/24 15:04 05/21/24 15:00 05/21/24 14:00 05/21/24 15:04
Vital Signs
Temp Pulse Resp BP Pulse Ox
98 F 68 16 131/56 97
05/21/24 15:04 05/21/24 15:04 05/21/24 15:00 05/21/24 14:00 05/21/24 15:04
Intake & Output
05/19/24 05/20/24 05/21/24 05/22/24
06:59 06:59 06:59 06:59
Intake Total 231.7 / 231.7
Output Total 465 / 465
Balance -233.3 / -233.3
Physical Exam
Physical Exam
GEN: No distress, awake, alert, oriented x3
HEENT: supple, anicteric, mmm
LUNGS: CTA b/l, no wheezes/rales
CV: Reg, S1/S2, no murmur
EXT: No clubbing or cyanosis, +2 edema
NEURO: Gross non-focal
SKIN: Warm, dry, no rash
[2024-05-21] MEDS: ANCEF 5 IV (16:03)
[2024-05-21 17:02] LABS: Glucose - Point of Care 91 mg/dl (70-99)
[2024-05-21] MEDS: LIPITOR 10 MG PO (17:30)
[2024-05-21] MEDS: APRESOLINE PO (18:35)
[2024-05-21 19:01] LABS: Glucose - Point of Care 137 mg/dl (70-99)
[2024-05-21] MEDS: ISMO 10 MG PO (19:47)
[2024-05-21] MEDS: SENOKOT-S 1 TABLET PO (19:47)
--- NOTE | 2024-05-21 20:00 | PTCARENOTE ---
Assumed care of the patient at 1900. Patient in bed, drowsy, AOx3. L arterial line, LIJ cordis/slic, all lines leveled and zeroed. SR with 1st degree AV block on the monitor; some intermittent bradycardia and pauses; CVPA aware, continue to monitor
patient; HRR, distant, rub heard on auscultation; palpable pulses, weak pedals, +4 B/L lower extremity pitting edema at baseline. L lateral CTx1 with a small amount of serosanguineous drainage on dressing, intact, serosanguineous drainage in the
chamber, tidaling noted, no crepitus or air leak; 3LNC, lungs diminished at the bases, occasional nonproductive cough, IS encouraged. Abdomen SNT, obese, hyperactive BS; Peralta catheter present, draining clear, yellow urine. All surgical sites CDI,
MASD in groin/buttocks. LAC PIVx1. On insulin gtt and Cardene. See worklist for nursing intervention details.
[2024-05-21 21:05] LABS: Glucose - Point of Care 106 mg/dl (70-99)
--- NOTE | 2024-05-21 21:24 | PTCARENOTE ---
UOP 25 for [id number], CVP mostly 2-3, CVPA made aware. Patient's CVP 4 at the time of this note.
--- NOTE | 2024-05-21 22:59 | PTCARENOTE ---
Patient sleeping deeply, bradying down to high 40's/low 50's sustained. CVPA aware, continue to monitor.
[2024-05-21 23:03] LABS: Glucose - Point of Care 87 mg/dl (70-99)
[2024-05-22] VITALS (19 sets, daily range): BP systolic 92–166; BP diastolic 41–79; PULSE 61; O2SAT 86–92; BMI 35.5
--- NOTE | 2024-05-22 00:08 | W.PN.CT ---
Today's Communication / Plan
-
Plan:
-No major issues overnight. Hemodynamically and neurologically intact
-Pt currently in NSR @ 82 bpm, but did have episodes of bradycardia 39 bpm, and 2 episodes of NSVT during sleep. States she has a loop recorder implanted since 06/2003 from [facility]
-Successfully extubated intraop on 05/21/24
-Weaned off Cardene gtt for BP control this AM
-D/C insulin gtt per protocol, tele phase
-D/C'd a-line/SLIC @ 0515
-D/C'd garcia catheter @ 0600
-Consider d/c chest: Lpl 80/195
-CTA since unable to obtain ADELAIDA
-May not need OAC
-Creatinine 1.1 today, 1.1 yesterday, appears to live at 0.7-1.1. 24hrs u/o 975 mL
-D/C cordis
-Control BP, on Hydralazine, Nifedipine, Isosorbide, Bumex, Losartan (was held yesterday d/t cr 1.1)
-OOB into chair/Ambulate
-Possible D/C home
Assessment / Plan
-
Assessment:
-S/P Robotic assisted left atrial appendage exclusion (40mm Pro2 Clip), by Dr. Mendoza, 05/21/24, pod#1
-History of persistent atrial fibrillation status post endovascular ablation, successful
-On chronic anticoagulation, intolerant with recurrent GI bleeds
-COPD, moderately disease
-LUIZ
-History of diastolic CHF with chronic peripheral LE edema and volume overload
-LVEF 60-65%
-Mild MR/TR
-Basal cell carcinoma of the face
-Melanoma of the left arm
-Right BrCA, s/p lumpectomy/LND (2016)
-Class 2 obesity (BMI 35.2)
-Hypertension
-Hyperlipidemia
-Renal insufficiency
-GERD/Hiatal hernia
-S/P aborted watchman procedure 04/20/24
-S/PPVI x2 (01/2019, 04/2019)
-S/P loop recorder implant, 06/2023 @ [facility]
Discussed patient care with: Cardiology, Nursing, Respiratory Therapy, Pharmacy and Care Team
Subjective
-
Date of Service: May 22, 2024
Pt offers no complaints, feels well. Slept well
Objective Data
-
PT 13.7 Sec (11.4-14.6) 05/21/24 10:30
INR 1.02 05/21/24 10:30
APTT 29.1 Sec (23.4-35.0) 05/21/24 10:30
Vital Signs
Vital Signs
Temp Pulse Resp BP Pulse Ox
98.2 F 61 17 117/42 95
05/21/24 23:00 05/21/24 23:04 05/21/24 23:00 05/21/24 22:00 05/21/24 23:04
CT Intake/Output/Weight
05/21/24 05/21/24 05/22/24
06:59 18:59 06:59
Intake Total 570.0 / 813.0 243 / 813.0
Output Total 760 / 980 220 / 980
Balance -190.0 / -167.0 23 / -167.0
SaO2: 95 (RA)
Physical Exam
-
General: Awake, Oriented and AOx3
Cardiovascular: Regular rate & rhythm, No Murmurs, No Rub and No Gallop
Respiratory: Clear
Incision: Clean, Dry, Intact and Dressing Intact
Extremities: Edema +2 (lymphedema)
Data Reviewed
-
Lab Results: Results Reviewed
Medications: Active Meds Reviewed
Chest X-Ray: Report Reviewed and Image Reviewed
ECG: Report Reviewed and Image Reviewed
[2024-05-22] MEDS: ANCEF 5 IV ×2 (00:09→09:26)
--- NOTE | 2024-05-22 00:15 | PTCARENOTE ---
Patient with continued low UOP - 20 mLs, CVPA aware. Cardene reduced to 1 mg/hr per CVPA d/t low MAP, art line and cuff pressures not correlating, MAP sufficient on cuff pressures, see flow sheet. Patient asleep soundly, maintained on 3LNC, no acute
issues. Continues to aylin intermittently, sustaining in 50-60's HR. Call pedersen within reach.
[2024-05-22 01:00] LABS: Glucose - Point of Care 122 mg/dl (70-99)
--- NOTE | 2024-05-22 02:55 | PTCARENOTE ---
Patient aylin to 39 unsustained several times. CVPA notified, Cardene placed on stand-by, no complaints from patient. VSS, patient sleeping between care, no issues. CVPA advised to use cuff pressures for measurement at this time.
[2024-05-22 03:01] LABS: Glucose - Point of Care 96 mg/dl (70-99)
--- NOTE | 2024-05-22 04:30 | PTCARENOTE ---
Patient had 12-beat run of vtach and additional 4-5 beat runs of vtach, CVPA at bedside to assess, patient denies symptoms of any kind. Labs drawn and sent. BP more elevated than previously, see flowsheet.
[2024-05-22 05:05] LABS: Glucose - Point of Care 97 mg/dl (70-99)
[2024-05-22 05:11] LABS: Blood Urea Nitrogen 30 mg/dl (7-17); Calcium 8.8 mg/dl (8.4-10.2); Carbon Dioxide 22 mmol/L (22-30); Chloride 110 mmol/L (98-107); Estimated Creatinine Clearance 45 ml/min; Glucose 87 mg/dl (70-99); Magnesium 2.3 mg/dl (1.6-2.3); Potassium 4.3 mmol/L (3.5-5.1); Sodium 141 mmol/L (135-145); eGFR 51.75
[2024-05-22 05:14] LABS: Hematocrit 32.2 % (37.0-47.0); Hemoglobin 10.4 g/dL (12.0-16.0); Mean Corp Hgb Conc. 32.3 g/dL (33.0-37.0); Mean Corpuscular Hgb 29.7 pg (27.0-31.0); Mean Platelet Volume 11.5 fL (7.4-10.4); Platelet Count 218 10^3/uL (130-400); Red Cell Dist. Width 14.6 % (11.5-14.5); White Blood Cell Count 14.4 10^3/uL (4.8-10.8)
[2024-05-22] MEDS: APRESOLINE 5 MG IV (06:46)
[2024-05-22] MEDS: TYLENOL 1000 MG PO ×3 (06:46→19:55)
--- NOTE | 2024-05-22 07:10 | W.PN.INTV ---
Today's Communication / Plan
Recommendations
Tolerated extubation
Wean FiO2
Increase activity
Discontinue insulin drip
Begin to deline
Gentle diuresis
Amiodarone hold
Outpatient pulmonary follow-up
Transfer to telemetry-call pulmonary if respiratory issues arise
Assessment
-
78-year-old female with a history of COPD, obstructive sleep apnea, morbid obesity, hypertension and hyperlipidemia who has persistent atrial fibrillation status post ablation on chronic anticoagulations intolerant due to recurrent GI bleeds and not
a Watchman procedure candidate underwent robotic assisted left atrial appendage exclusion-fisheries management biologist consulted for postoperative ventilator/critical care management 05/21/2024.
Persistent atrial fibrillation-intolerant to chronic anticoagulation due to recurrent GI bleeds and failed/aborted Watchman procedure (inability to pass ADELAIDA probe)
Status post robotic assisted left atrial appendage exclusion-Dr. Mendoza-05/21/2024
Mild anemia-hemoglobin 11.7
Hyperglycemia
Conditions present prior to admission:
Hypertension.
Hyperlipidemia.
Morbid obesity.
LUIZ-CPAP intolerant-stopped wearing 08/2023
COPD-never smoker, suspect chronic asthma, maintained on Trelegy 100 and albuterol
Atrial fibrillation/ablation/anticoagulation intolerance due to recurrent GI bleeds.
Recurrent GI bleeds.
Melanoma left arm.
Breast cancer/lumpectomy 2016
Plan
Tolerated extubation
Wean FiO2
Encourage incentive spirometry
Increase activity
Aspiration precautions
Pulmonary artery catheter and arterial line will be removed
Pressors have been weaned
Continue to monitor chest tube output
Follow hemoglobin
Continue to follow platelet count and coags
Transfuse blood product as needed
CT surgery following chest tubes as well
Cardiology following-correspondence reviewed
CT chest to evaluate left atrial appendage closure site and need for anticoagulation pending
Gentle diuresis
Monitor first-degree AV block
Holding amiodarone
Follow blood sugar
Insulin supplementation continues as needed
Early nutrition
Early mobilization
DVT prophylaxis
Last saw Wilfredo Franco as a new patient 05/13/2024-previously followed by Dr. Peoples-recommended to follow back up August 2024
Patient will be transferred to telemetry phase-call pulmonary if respiratory issues arise
Reviewed the patient's pertinent medical records including radiographs, microbiology, laboratory evaluations, and discussion with primary team, and critical care nursing.
Diagnostic data:
Chest x-ray 05/21/2024-no evidence for significant pneumothorax, mild subcutaneous emphysema
Pulmonary function studies-05/13/24: Spirometry demonstrated mild restrictive lung disease.� The forced vital capacity was 1.65 L or 66% of predicted.� The FEV1 was 1.36 L or 79% of predicted.� The FEV1/FVC ratio was 82%.� Lung volumes revealed
moderate restrictive lung disease the total lung capacity was 2.88 L or 62% of predicted.� The diffusing capacity was moderately reduced at 7.7 or 41% of predicted.� This was consistent with a moderate gas exchange deficit. When adjusted for
alveolar volume, the diffusing capacity improves to 66% predicted.�Compared to 10/2023, the forced vital capacity has improved from 1.56 L to 1.65 L.� The FEV1 has improved from a 1.23 L to 1.36 L.
6 minute walk test-05/13/24: Resting saturation was 100%.� Lowest saturation was 94% ambulating 525 feet.� Maximum heaart rate waas 117 bpm.� Her perceived dyspnea was negligible and 0 on a 10 point dyspnea scale
Chest x-ray-09/17/20: No acute lung disease..
CT chest ([facility]) 02/05/24: Images reviewed.Enlargement of the main pulmonary artery suggesting pulmonary hypertension.� Mild mediastinal and bilateral hilar lymphadenopathy.Mild bilateral lung hyperinflation.Severe mosaic attenuation pattern
throughout both lungs.� No airspace opacity..
Echocardiogram-04/10/23: Normal LVEF 65-70% with mild to moderate mitral regurgitation mild to moderate tricuspid regurgitation.� PA pressures estimated at 75 mmHg.� (PA pressures were 65 mmHg 10/29/18 echo.
Subjective Dataa
Subjective Data
Date of Service:
Date of Service: May 22, 2024
Chief Complaint: Customs Brokerage Agent Follow Up, Pulmonary Follow Up and Vent Management Follow Up
Subjective:
Tolerated extubation, out of bed, more alert, no complaints of shortness of breath, chest pain from chest tube site controlled, no abdominal pain
Review of Systems
General: Other (Per HPI)
Objective Data
Data Reviewed
Vital Signs / I&O / Oxygen:
Vital Signs
Temp Pulse Resp BP Pulse Ox
97.7 F 77 18 166/71 92
05/22/24 06:00 05/22/24 06:50 05/22/24 06:00 05/22/24 06:46 05/22/24 06:50
Intake and Output
05/21/24 05/22/24 05/23/24
06:59 06:59 06:59
Intake Total 991.4 / 991.4
Output Total 1195 / 1195
Balance -203.6 / -203.6
SaO2 92
Nasal Cannula flow liters per 3
minute
Physical Exam
General: Respiratory Distress (n) and Comfortable
HEENT: Normocephalic, Anicteric and Moist Mucous Membranes
Cardiovascular: Regular Rhythm
Respiratory: Wheeze (n), Crackles (n), Rhonchi, Non-Labored Respirations, Accessory Resp Muscle Use (n), Stridor (n) and Chest Tube
GI: Soft, Non Distended and Non Tender
Neurology: Awake, Alert and No Motor Deficits
Skin: Warm, Good Color, Cyanosis (n), Jaundice (n) and Rash (n)
Labs/Micro/Reports
Lab Data
05/22/24 04:33
05/22/24 04:33
Laboratory Results
05/21/24
10:30
PT 13.7
INR 1.02
APTT 29.1
pH 7.31 L
pCO2 41 H
pO2 106
HCO3 20.6 L
O2 Delivery Level
Microbiology
05/18/24 08:40 Nose MRSA Screen - Final
No Methicillin Resistant Staphylococcus aureus isolated.
05/18/24 09:58 Urine Urine Culture - Final
No Significant Growth
[2024-05-22 07:16] LABS: Glucose - Point of Care 106 mg/dl (70-99)
[2024-05-22] MEDS: SPIRIVA RESPIMAT 2.5 MCG 2 PUFF INH (07:44)
[2024-05-22] MEDS: SYMBICORT 80/4.5 MCG INHALER 2 PUFF INH ×2 (07:45→18:34)
--- NOTE | 2024-05-22 08:00 | PTCARENOTE ---
Resumed care of the patient from prev RN. AAOx3. SR/SB with 1st degree block. palpable pulses +4 B/L lower extremity pitting edema. L lateral CTx1 with serosanguineous drainage. no crepitus or air leak. 3 L nc, lungs diminished at the bases. IS
750. All surgical sites CDI, LAC PIVx1. insulin gtt per glycemic protocol. will continue to monitor.
--- NOTE | 2024-05-22 09:14 | W.PN.CARDCBS ---
Today's Communication / Plan
-
For CT scan to evaluate left atrial appendage closure site and need for anticoagulation
Has marked first-degree AV block which is old but slightly worse. Hold amiodarone.
Will continue gentle diuresis. Will be getting Bumex today
Impression / Plan
-
PCP: Dr. Bobo
Child Support Officer: Dr. Andres ([facility])
Impression:
s/p BUCK exclusion w/ #40 mm Pro2 Clip
Persistent AFib
s/p PVI x2 (01/2019, 04/2019)
h/o aborted watchman implant 04/20/24
Chronic diastolic HFpEF
HTN
HLD
COPD
LUIZ
Ambulatory dysfunction/gait disturbance
Chronic BLE lymphedema
R BrCA, s/p lumpectomy/LND (2015)
Plan:
-Previously attempted Watchman procedure 04/20/2024, however ADELAIDA probe was unable to pass despite multiple attempts and therefore procedure was aborted. Now s/p BUCK exclusion 05/21/2024 w/ Dr. Mendoza.
-Given difficulty previously w/ ADELAIDA, it was not attempted, so plan is for CTA of chest today to assess if occlusive.
-Results of CTA will determine need for ongoing anticoagulation.
-Hgb stable at 11.3
-Would continue gentle diuresis with Lasix today.
-On review of tele, remains in SR.
-Post op EKG SR 1st degree AV block, stable compared to prior. Would hold amiodarone with marked first-degree AV block.
-Continue hydralazine, Isosorbide, nifedipine.
-Follow up w/ Dr. Andres
Progress Note - Child Support Officer
Subjective
Date of Service: May 22, 2024
Overall feels well. No dizziness or lightheadedness.
Objective
Labs:
05/22/24 04:33
05/22/24 04:33
Labs
Hgb 10.4 g/dL (12.0-16.0) L 05/22/24 04:33
Hct 32.2 % (37.0-47.0) L 05/22/24 04:33
Plt Count 218 10^3/uL (130-400) 05/22/24 04:33
PT 13.7 Sec (11.4-14.6) 05/21/24 10:30
INR 1.02 05/21/24 10:30
APTT 29.1 Sec (23.4-35.0) 05/21/24 10:30
Sodium 141 mmol/L (135-145) 05/22/24 04:33
Potassium 4.3 mmol/L (3.5-5.1) 05/22/24 04:33
BUN 30 mg/dl (7-17) H 05/22/24 04:33
Creatinine 1.1 mg/dL (0.6-1.0) H 05/22/24 04:33
Glucose 87 mg/dl (70-99) 05/22/24 04:33
Vital Signs and I&O:
Vital Signs
Temp Pulse Resp BP Pulse Ox
98.1 F 58 18 153/63 97
05/22/24 08:00 05/22/24 08:20 05/22/24 08:00 05/22/24 08:00 05/22/24 08:20
Vital Signs
Temp Pulse Resp BP Pulse Ox
98.1 F 58 18 153/63 97
05/22/24 08:00 05/22/24 08:20 05/22/24 08:00 05/22/24 08:00 05/22/24 08:20
Intake & Output
05/20/24 05/21/24 05/22/24 05/23/24
06:59 06:59 06:59 06:59
Intake Total 991.4 / 1022.2 41.6 / 41.6
Output Total 1195 / 1240 45 / 45
Balance -203.6 / -217.8 -3.4 / -3.4
Physical Exam
Physical Exam
GEN: No distress, awake, Ox3
HEENT: supple, anicteric, mmm
LUNGS: CTA, no wheezes/rales
CV: Reg, S1/S2, 1/6 syst LSB, no gallop
ABD: soft, BS+, NT/ND
EXT: No edema
NEURO: Gross non-focal
SKIN: No rash
[2024-05-22] MEDS: ISMO 10 MG PO ×2 (09:23→19:57)
[2024-05-22] MEDS: PROCARDIA XL (EXTENDED RELEASE) 30 MG PO (09:23)
[2024-05-22] MEDS: LOPRESSOR 12.5 MG PO (09:24)
[2024-05-22] MEDS: MAGNESIUM OXIDE 500 MG PO ×2 (09:24→19:58)
[2024-05-22] MEDS: PROTONIX 40 MG PO (09:24)
[2024-05-22] MEDS: APRESOLINE 100 MG PO ×2 (09:24→19:56)
[2024-05-22] MEDS: SENOKOT-S 1 TABLET PO ×2 (09:25→19:55)
[2024-05-22] MEDS: LOW STRENGTH ASPIRIN 81 MG PO (09:25)
[2024-05-22] MEDS: BACTROBAN 2% OINTMENT 1 APPLIC NASAL ×2 (09:26→19:58)
[2024-05-22 09:29] LABS: Glucose - Point of Care 79 mg/dl (70-99)
[2024-05-22] MEDS: NSS IV (10:53)
[2024-05-22] MEDS: BUMEX 1 MG PO (11:00)
--- NOTE | 2024-05-22 15:11 | PTCARENOTE ---
d/c chest tube per orders with PA Pat at bedside. No issues. 3L weaned to 2Lnc. unable to wean off. IS encouraged.
--- NOTE | 2024-05-22 17:31 | W.PN.ANS.POP ---
Anesthesia Post Operative
- Anesthesia Post Op Note
Vital Signs Stable-See Nursing Note: Yes
Airway Patent: Yes
Adequate Pain Control: Yes
Change in Mental Status: No
Current Postoperative Nausea & Vomiting: No
Anesthesia Complications: No
General Anesthetic Recall: No
Unplanned Admission: No
Post Op Hydration Adequate: Yes
[2024-05-22] MEDS: LIPITOR 10 MG PO (19:57)
--- NOTE | 2024-05-22 21:28 | PTCARENOTE ---
assumed care of patient @ 1900. received pt laying in bed, Aox3. Micha with 1st degree block HR 40s on tele. +4 pitting edema to lower extremities, weak but palpable pulses. Lungs clear, diminished on 2L. Trialed on RA - 85 %. placed back on 2L
satting mid 90s. Belly soft, normoactive. voiding in bathroom clear yellow urine. L chest incision CDI REFRIGERATOR CRATER. L IJ cordis and L AC PIV patent. pt assisted to bathroom and then back to bed. resting comfortably with call pedersen within reach .
[2024-05-23] VITALS (10 sets, daily range): BP systolic 140–171; BP diastolic 47–63; BMI 35.7
--- NOTE | 2024-05-23 01:32 | PTCARENOTE ---
HR higher now in the 60s, still with 1st degree AVB. resting comfortably, no other change in assessment .
[2024-05-23 04:30] LABS: Hematocrit 32.4 % (37.0-47.0); Hemoglobin 10.2 g/dL (12.0-16.0); Mean Corp Hgb Conc. 31.5 g/dL (33.0-37.0); Mean Corpuscular Volume 95.3 fL (81.0-99.0); Mean Platelet Volume 11.3 fL (7.4-10.4); Platelet Count 211 10^3/uL (130-400); Red Cell Dist. Width 14.8 % (11.5-14.5); White Blood Cell Count 12.7 10^3/uL (4.8-10.8)
[2024-05-23 04:50] LABS: Blood Urea Nitrogen 43 mg/dl (7-17); Calcium 8.8 mg/dl (8.4-10.2); Carbon Dioxide 27 mmol/L (22-30); Chloride 107 mmol/L (98-107); Estimated Creatinine Clearance 38 ml/min; Glucose 107 mg/dl (70-99); Magnesium 2.5 mg/dl (1.6-2.3); Potassium 4.5 mmol/L (3.5-5.1); Sodium 140 mmol/L (135-145); eGFR 42.35
--- NOTE | 2024-05-23 04:59 | W.PN.CT ---
Today's Communication / Plan
-
Plan:
-No major issues overnight. Hemodynamically and neurologically intact
-No further NSVT, but noted to be in sinus aylin @ 35 bpm during sleep. States she has a loop recorder implanted since 06/2003 from [facility]
-Cr 1.3 today, was 1.1 yesterday and 1.0 preop. May benefit from more diuresis, received 1mg Bumex yesterday, will give 1 Bumex IV today. CXR shows pulmonary edema, still requiring 2L O2 support
-Mg 2.5, will place mag oxide on hold
-CTA angio yesterday 05/22 confirmed an occluded BUCK. Will not require NOAC/DOAC
-Control BP, on Hydralazine, Nifedipine, Isosorbide, Bumex. Losartan currently on hold
-OOB into chair/Ambulate
Assessment / Plan
-
Assessment:
-S/P Robotic assisted left atrial appendage exclusion (40mm Pro2 Clip), by Dr. Mendoza, 05/21/24, pod#2
-History of persistent atrial fibrillation status post endovascular ablation, successful
-On chronic anticoagulation, intolerant with recurrent GI bleeds
-COPD, moderately disease
-LUIZ
-History of diastolic CHF with chronic peripheral LE edema and volume overload
-LVEF 60-65%
-Mild MR/TR
-Basal cell carcinoma of the face
-Melanoma of the left arm
-Right BrCA, s/p lumpectomy/LND (2015)
-Class 2 obesity (BMI 35.2)
-Hypertension
-Hyperlipidemia
-Renal insufficiency
-GERD/Hiatal hernia
-S/P aborted watchman procedure 04/20/24
-S/PPVI x2 (01/2019, 04/2019)
-S/P loop recorder implant, 06/2023 @ [facility]
-Acute postop bradycardia
-Acute postop NSVT
-Acute postop BRAYAN
-Acute postop pulmonary insufficiency
Discussed patient care with: Cardiology, Nursing, Respiratory Therapy, Pharmacy and Care Team
Subjective
Procedure
-S/P Robotic assisted left atrial appendage exclusion (40mm Pro2 Clip), by Dr. Mendoza, 05/21/24
-
Date of Service: May 23, 2024
Pt c/o mild incisional pain otherwise feels well.
Objective Data
-
Lab Results
05/23/24 04:15
05/23/24 04:15
PT 13.7 Sec (11.4-14.6) 05/21/24 10:30
INR 1.02 05/21/24 10:30
APTT 29.1 Sec (23.4-35.0) 05/21/24 10:30
Vital Signs
Vital Signs
Temp Pulse Resp BP Pulse Ox
97.8 F 63 16 155/51 94
05/22/24 20:00 05/23/24 01:20 05/23/24 00:00 05/23/24 00:01 05/23/24 01:20
CT Intake/Output/Weight
05/22/24 05/22/24 05/23/24
06:59 18:59 06:59
Intake Total 421.4 / 1022.2 81.7 / 81.7
Output Total 435 / 1240 100 / 100
Balance -13.6 / -217.8 -18.3 / -18.3
SaO2: 94 (2L)
Physical Exam
-
General: Awake, Oriented and AOx3
Cardiovascular: Regular rate & rhythm, No Murmurs, No Rub and No Gallop
Respiratory: Decreased Breath Sounds
Incision: Clean, Dry, Intact and Dressing Intact
Extremities: Edema +2
Data Reviewed
-
Lab Results: Results Reviewed
Medications: Active Meds Reviewed
Chest X-Ray: Report Reviewed and Image Reviewed
ECG: Report Reviewed and Image Reviewed
[2024-05-23] MEDS: SPIRIVA RESPIMAT 2.5 MCG 2 PUFF INH (07:14)
[2024-05-23] MEDS: SYMBICORT 80/4.5 MCG INHALER 2 PUFF INH ×2 (07:14→19:17)
[2024-05-23] MEDS: TYLENOL 1000 MG PO ×3 (08:00→19:41)
[2024-05-23] MEDS: SENOKOT-S 1 TABLET PO ×2 (08:00→19:41)
[2024-05-23] MEDS: PROTONIX 40 MG PO (08:00)
[2024-05-23] MEDS: LOW STRENGTH ASPIRIN 81 MG PO (08:01)
[2024-05-23] MEDS: APRESOLINE 100 MG PO ×2 (08:01→19:40)
[2024-05-23] MEDS: ISMO 10 MG PO ×2 (08:02→19:41)
[2024-05-23] MEDS: BACTROBAN 2% OINTMENT 1 APPLIC NASAL ×2 (08:02→19:40)
--- NOTE | 2024-05-23 08:47 | PTCARENOTE ---
Received patient for 7a-7p shift. Pt AAOx3, without complaints. SB-SR with 1st degree hb on laboratory monitor, VSS, pox 93% on 2L nc. Pt denies pain at this time. Ambulatory in room with rolling walker. Medications administered as ordered. L IJ KVO
infusing without issues. Will continue to monitor.
[2024-05-23] MEDS: BUMEX 1 MG IV ×2 (09:36→14:24)
[2024-05-23] MEDS: NSS 500 IV (09:37)
[2024-05-23] MEDS: PROCARDIA XL (EXTENDED RELEASE) 30 MG PO (09:37)
--- NOTE | 2024-05-23 11:24 | PTCARENOTE ---
Patient reassessed, assessment unchanged from previous. SB-SR w 1st degree hb on investigator claims. Pt had short run of PAT, HR 110 after walking back from bathroom. CTPA Pat aware. BP 159/54, pt asymptomatic, HR returned to SR 70-80s. Will continue
to monitor.
--- NOTE | 2024-05-23 14:30 | PTCARENOTE ---
Patient with increased SOB, pox 89% 2L nc. Increased O2 to 4L, 93%. Pat, CTPA aware. Now dose of Bumex ordered and given. BP 160/58. Will continue to monitor.
[2024-05-23] MEDS: COZAAR 100 MG PO (17:33)
[2024-05-23] MEDS: LIPITOR 10 MG PO (17:33)
--- NOTE | 2024-05-23 18:12 | PTCARENOTE ---
Patient's BP 171/63. Pat, CTPA aware. Losartan 100mg ordered and administered. Will continue to monitor.
[2024-05-24] VITALS (12 sets, daily range): BP systolic 127–182; BP diastolic 47–70; PULSE 99; O2SAT 92–94; BMI 35.5
--- NOTE | 2024-05-24 | PTCARENOTE ---
pt assisted to the bathroom, now resting comfortably in bed with call pedersen within reach. no change in assessmetn
--- NOTE | 2024-05-24 00:19 | PTCARENOTE ---
assumed care of patient @ 1900. received pt laying in bed, AOx3. Sinus with 1st degree AVB on tele. Lungs clear, diminished on 4L. Trialed on 2L- 86 percent. pt is slightly BENNETT, taking shallow breaths . +4 pitting LE edema. Belly soft, normoactive.
voiding clear yellow urine in bathroom. all surgical sites CDI. L IJ cordis and PIV patent. Pt resting comfortably with call pedersen within reach .
[2024-05-24 04:34] LABS: Hematocrit 32.8 % (37.0-47.0); Hemoglobin 10.4 g/dL (12.0-16.0); Mean Corp Hgb Conc. 31.7 g/dL (33.0-37.0); Mean Corpuscular Hgb 29.9 pg (27.0-31.0); Mean Corpuscular Volume 94.3 fL (81.0-99.0); Mean Platelet Volume 11.5 fL (7.4-10.4); Platelet Count 179 10^3/uL (130-400); Red Blood Cell Count 3.48 10^6/uL (4.20-5.40); Red Cell Dist. Width 14.9 % (11.5-14.5); White Blood Cell Count 12.1 10^3/uL (4.8-10.8)
--- NOTE | 2024-05-24 04:43 | W.PN.CT ---
Today's Communication / Plan
-
Plan:
-No major issues overnight. Hemodynamically and neurologically intact
-No further NSVT, but noted to be in sinus aylin @ 35 bpm during sleep. States she has a loop recorder implanted since 06/[address] [facility]. Currently NSR @ 94 bpm
-Amiodarone and BB currently on hold
-Cr improved after diuresis yesterday, 1.1 down from 1.3 yesterday, was 1.0 preop. Will give 2mg IV Bumex this AM as both CXR/pro-BnP indicates acute CHF. Still requiring 3L O2 support. Will assess for more diuresis
-Mg 2.3 down from 2.5 yesterday. Will cont. to hold mag oxide
-CTA angio on 05/22 confirmed an occluded BUCK. Will not require NOAC/DOAC
-Control BP, on Hydralazine, Nifedipine, Isosorbide, Bumex, Losartan has been resumed
-F/U 2-view cxr
-Encourage use of IS
-OOB into chair/Ambulate
Assessment / Plan
-
Assessment:
-S/P Robotic assisted left atrial appendage exclusion (40mm Pro2 Clip), by Dr. Mendoza, 05/21/24, pod#3
-History of persistent atrial fibrillation status post endovascular ablation, successful
-On chronic anticoagulation, intolerant with recurrent GI bleeds
-COPD, moderately disease
-LUIZ
-History of diastolic CHF with chronic peripheral LE edema and volume overload
-LVEF 60-65%
-Mild MR/TR
-Basal cell carcinoma of the face
-Melanoma of the left arm
-Right BrCA, s/p lumpectomy/LND (2015)
-Class 2 obesity (BMI 35.2)
-Hypertension
-Hyperlipidemia
-Renal insufficiency
-GERD/Hiatal hernia
-S/P aborted watchman procedure 04/20/24
-S/PPVI x2 (01/2019, 04/2019)
-S/P loop recorder implant, 06/[address] [facility]
-Acute postop bradycardia
-Acute postop NSVT
-Acute postop BRAYAN
-Acute postop pulmonary insufficiency
Discussed patient care with: Cardiology, Nursing, Respiratory Therapy, Pharmacy and Care Team
Subjective
Procedure
-S/P Robotic assisted left atrial appendage exclusion (40mm Pro2 Clip), by Dr. Mendoza, 05/21/24
-
Date of Service: May 24, 2024
c/o SOB yesterday, states better today
Objective Data
-
Lab Results
05/24/24 04:27
PT 13.7 Sec (11.4-14.6) 05/21/24 10:30
INR 1.02 05/21/24 10:30
APTT 29.1 Sec (23.4-35.0) 05/21/24 10:30
Vital Signs
Vital Signs
Temp Pulse Resp BP Pulse Ox
97.7 F 66 18 166/63 95
05/23/24 20:00 05/24/24 00:30 05/24/24 00:00 05/23/24 23:57 05/24/24 00:00
CT Intake/Output/Weight
05/23/24 05/23/24 05/24/24
06:59 18:59 06:59
Intake Total 290 / 350 60 / 350
Balance 290 / 350 60 / 350
SaO2: 95 (2L)
Physical Exam
-
General: Awake, Oriented and AOx3
Cardiovascular: Regular rate & rhythm, No Murmurs and No Gallop
Respiratory: Decreased Breath Sounds
Incision: Clean, Dry, Intact and Dressing Intact
Extremities: Edema +2 (lymphedema)
Data Reviewed
-
Lab Results: Results Reviewed
Medications: Active Meds Reviewed
Chest X-Ray: Report Reviewed and Image Reviewed
ECG: Report Reviewed and Image Reviewed
[2024-05-24] MEDS: APRESOLINE 5 MG IV (04:46)
[2024-05-24 04:58] LABS: Blood Urea Nitrogen 41 mg/dl (7-17); Calcium 8.8 mg/dl (8.4-10.2); Carbon Dioxide 26 mmol/L (22-30); Chloride 106 mmol/L (98-107); Estimated Creatinine Clearance 45 ml/min; Glucose 119 mg/dl (70-99); Magnesium 2.3 mg/dl (1.6-2.3); Potassium 4.5 mmol/L (3.5-5.1); Sodium 143 mmol/L (135-145); eGFR 51.75
[2024-05-24 05:05] LABS: NT-proBNP 2190 pg/ml
[2024-05-24] MEDS: TYLENOL PO ×2 (07:45→15:02)
[2024-05-24] MEDS: COZAAR 100 MG PO (08:29)
[2024-05-24] MEDS: ISMO 10 MG PO ×2 (08:29→20:38)
[2024-05-24] MEDS: LOW STRENGTH ASPIRIN 81 MG PO (08:29)
[2024-05-24] MEDS: APRESOLINE 100 MG PO ×2 (08:29→20:38)
[2024-05-24] MEDS: PROCARDIA XL (EXTENDED RELEASE) 30 MG PO ×2 (08:29→20:38)
[2024-05-24] MEDS: PROTONIX 40 MG PO (08:29)
[2024-05-24] MEDS: SENOKOT-S 1 TABLET PO ×2 (08:29→20:38)
[2024-05-24] MEDS: BACTROBAN 2% OINTMENT 1 APPLIC NASAL ×2 (08:30→20:37)
[2024-05-24] MEDS: BUMEX 2 MG IV ×2 (09:18→15:25)
[2024-05-24] MEDS: NSS IV (09:19)
[2024-05-24] MEDS: KCL 20 MEQ PO (09:19)
[2024-05-24] MEDS: SYMBICORT 80/4.5 MCG INHALER 2 PUFF INH ×2 (09:53→19:21)
[2024-05-24] MEDS: SPIRIVA RESPIMAT 2.5 MCG 2 PUFF INH (09:53)
--- NOTE | 2024-05-24 09:54 | PTCARENOTE ---
assumed care of pt from previous shift RN, sinus rhythm on tele, BP 182/66, + peripheral pulses, +3 baseline lower extremities edema. Lungs w crackles left 1/2 way up. +bs, tolerating PO intake, voids spontaneously. Surgical sites stable. Cordis and
PIV flush easily. Plan of care reviewed w the pt and questions encouraged.
--- NOTE | 2024-05-24 10:55 | CM ---
Reviewed chart. Met with Mrs. Albert to review discharge plans. She states she is feeling better today and maybe able to go home soon. She states she ambulated in the hallway with a walker. We reviewed a home visit by the Transitional Care
Nurse. She is agreeable to a home visit. She states she resides alone in a independent residential apartment at [facility]. She states she has an elevator to get to her third floor apartment. She states prior to admission she ambulates with a
rolling walker. She states she has two walkers at home. She states she was not on home 02 prior to admission. She has a prescription plan. She states she is planning on going home alone. Her daughter resides in [place] and her son in [facility].
She states she has neighbors who maybe able to assist in her care if needed. Will need to check if she will need home 02. Medical work-up in progress. The discharge plan is to return home with a home visit by the Transitional Care Nurse when
meidcally stable.
--- NOTE | 2024-05-24 11:25 | PTCARENOTE ---
2 view CXR completed
--- NOTE | 2024-05-24 15:18 | W.PN.CARDCBS ---
Today's Communication / Plan
-
Cont post op care
CT stable.
H/H stable.
Cont gentle diuresis with Bumex. Received Bumex IV AM May 24.
Amiodarone held with first degree AV block
Amidarone and beta yocasta held with sinus bradycardia during sleep.
Continue hydralazine, Isosorbide, nifedipine.
Follow up w/ Dr. Andres
Impression / Plan
-
.
PCP: Dr. Bobo
Personal Property Assessor: Dr. Andres ([facility])
Impression:
s/p BUCK exclusion w/ #40 mm Pro2 Clip
Persistent AFib
s/p PVI x2 (01/2019, 04/2019)
h/o aborted watchman implant 04/20/24
Chronic diastolic HFpEF
HTN
HLD
COPD
LUIZ
Ambulatory dysfunction/gait disturbance
Chronic BLE lymphedema
R BrCA, s/p lumpectomy/LND (2015)
Plan:
-Previously attempted Watchman procedure 04/20/2024, however ADELAIDA probe was unable to pass despite multiple attempts and therefore procedure was aborted. Now s/p BUCK exclusion 05/21/2024 w/ Dr. Mendoza.
Cont post op care
CT stable.
H/H stable.
Cont gentle diuresis with Bumex. Received Bumex IV AM May 24.
Amiodarone held with first degree AV block
Amidarone and beta yocasta held with sinus bradycardia during sleep.
Continue hydralazine, Isosorbide, nifedipine.
Follow up w/ Dr. Andres
Progress Note - Personal Property Assessor
Subjective
Date of Service: May 24, 2024
Pt seen and examined. No complaints. No chest pain or shortness of breath.
Objective
Labs:
05/24/24 04:27
05/24/24 04:27
Labs
Hgb 10.4 g/dL (12.0-16.0) L 05/24/24 04:27
Hct 32.8 % (37.0-47.0) L 05/24/24 04:27
Plt Count 179 10^3/uL (130-400) 05/24/24 04:27
PT 13.7 Sec (11.4-14.6) 05/21/24 10:30
INR 1.02 05/21/24 10:30
APTT 29.1 Sec (23.4-35.0) 05/21/24 10:30
Sodium 143 mmol/L (135-145) 05/24/24 04:27
Potassium 4.5 mmol/L (3.5-5.1) 05/24/24 04:27
BUN 41 mg/dl (7-17) H 05/24/24 04:27
Creatinine 1.1 mg/dL (0.6-1.0) H 05/24/24 04:27
Glucose 119 mg/dl (70-99) H 05/24/24 04:27
Vital Signs and I&O:
Vital Signs
Temp Pulse Resp BP Pulse Ox
98.1 F 89 21 144/57 93
05/24/24 12:05 05/24/24 12:30 05/24/24 12:05 05/24/24 12:02 05/24/24 13:04
Vital Signs
Temp Pulse Resp BP Pulse Ox
98.1 F 89 21 144/57 93
05/24/24 12:05 05/24/24 12:30 05/24/24 12:05 05/24/24 12:02 05/24/24 13:04
Intake & Output
05/22/24 05/23/24 05/24/24 05/25/24
06:59 06:59 06:59 06:59
Intake Total 991.4 / 1022.2 81.7 / 81.7 390 / 390
Output Total 1195 / 1240 100 / 100 600 / 600
Balance -203.6 / -217.8 -18.3 / -18.3 390 / 390 -590 / -590
Physical Exam
Physical Exam
General: No acute distress, AAOX3
Neck: Negative JVD
Heart: Regular, Negative S3 positive S1/S2, Negative S4, No murmur
Lungs: CTA b/l, negative wheezes/rales/rhonchi
Abd: Positive BS, NT/ND, neg rebound/rigidity/guarding
Ext: Negative cyanosis/clubbing/edema
Neuro: nonfocal
[2024-05-24] MEDS: LIPITOR 10 MG PO (17:51)
--- NOTE | 2024-05-24 19:00 | PTCARENOTE ---
received pt from previous rn. pt NSR per tele, + peripheral pulses, +3 baseline lower extremities edema, pox 93-95% on 1L NC, +bs, voids spontaneously, piv intact, all surgical sites intact, plan of care reviewed w/ pt
--- NOTE | 2024-05-24 20:20 | PTCARENOTE ---
EKG confirmed A-fib HR 140s, CTPA aware, pt asymptomatic BP stable, will continue to monitor
[2024-05-24] MEDS: TYLENOL 1000 MG PO (20:37)
[2024-05-24 21:28] LABS: Blood Urea Nitrogen 36 mg/dl (7-17); Carbon Dioxide 28 mmol/L (22-30); Estimated Creatinine Clearance 49 ml/min; Glucose 125 mg/dl (70-99); Magnesium 2.2 mg/dl (1.6-2.3); eGFR 58.02
[2024-05-24 21:36] LABS: Chloride 101 mmol/L (98-107); Potassium 4.1 mmol/L (3.5-5.1); Sodium 140 mmol/L (135-145)
[2024-05-25] VITALS (10 sets, daily range): BP systolic 129–164; BP diastolic 45–59; PULSE 81; O2SAT 82–94; BMI 35.3
--- NOTE | 2024-05-25 00:09 | PTCARENOTE ---
pt resting comfortably in bed, A-fib per tele monitor HR 90s, VSS assessment remains unchanged
--- NOTE | 2024-05-25 04:25 | PTCARENOTE ---
routine labs sent, VSS, NSR per tele monitor assessment remains unchanged
[2024-05-25 04:35] LABS: Mean Corp Hgb Conc. 32.3 g/dL (33.0-37.0); Mean Corpuscular Hgb 29.4 pg (27.0-31.0); Mean Corpuscular Volume 91.2 fL (81.0-99.0); Mean Platelet Volume 11.6 fL (7.4-10.4); Platelet Count 204 10^3/uL (130-400); Red Cell Dist. Width 15.1 % (11.5-14.5); White Blood Cell Count 8.1 10^3/uL (4.8-10.8)
[2024-05-25 04:57] LABS: Blood Urea Nitrogen 41 mg/dl (7-17); Calcium 8.6 mg/dl (8.4-10.2); Carbon Dioxide 29 mmol/L (22-30); Chloride 104 mmol/L (98-107); Estimated Creatinine Clearance 41 ml/min; Glucose 95 mg/dl (70-99); Magnesium 2.3 mg/dl (1.6-2.3); Potassium 4.2 mmol/L (3.5-5.1); Sodium 141 mmol/L (135-145); eGFR 46.62
--- NOTE | 2024-05-25 05:09 | W.PN.CT ---
Today's Communication / Plan
-
Plan:
-No major issues overnight. Hemodynamically and neurologically intact
-No further NSVT, or bradycardia during sleep, however went into a-fib with RVR 140's x 2 hrs which was self-limiting. Has loop recorderr implanted since 06/2003 from [facility]. Currently NSR @ 72 bpm
-Amiodarone and BB currently on hold
-May need EP evaluation for PPM placement if further bradycardia
-Cr 1.2 today, was 1.1/1.0 yesterday, was 1.0 preop. Gave a total of 4mg IV Bumex yesterday. Cont. gentle diuresis. O2 requirement decreased to 1L NC, was 3L NC yesterday. O2 sats 92% on 1L
-CTA angio on 05/22 confirmed an occluded BUCK. Will not require NOAC/DOAC
-Control BP, on Hydralazine, Nifedipine, Isosorbide, Bumex, and Losartan
-Wean off of O2
-Encourage use of IS
-OOB into chair/Ambulate
-Likely home tomorrow
Assessment / Plan
-
Assessment:
-S/P Robotic assisted left atrial appendage exclusion (40mm Pro2 Clip), by Dr. Mendoza, 05/21/24, pod#4
-History of persistent atrial fibrillation status post endovascular ablation, successful
-On chronic anticoagulation, intolerant with recurrent GI bleeds
-COPD, moderately disease
-LUIZ
-History of diastolic CHF with chronic peripheral LE edema and volume overload
-LVEF 60-65%
-Mild MR/TR
-Basal cell carcinoma of the face
-Melanoma of the left arm
-Right BrCA, s/p lumpectomy/LND (2015)
-Class 2 obesity (BMI 35.2)
-Hypertension
-Hyperlipidemia
-Renal insufficiency
-GERD/Hiatal hernia
-S/P aborted watchman procedure 04/20/24
-S/PPVI x2 (01/2019, 04/2019)
-S/P loop recorder implant, 06/2023 @ [facility]
-Acute postop bradycardia
-Acute postop NSVT
-Acute postop BRAYAN
-Acute postop pulmonary insufficiency
Discussed patient care with: Cardiology, Nursing, Respiratory Therapy, Pharmacy and Care Team
Subjective
Procedure
-S/P Robotic assisted left atrial appendage exclusion (40mm Pro2 Clip), by Dr. Mendoza, 05/21/24
-
Date of Service: May 25, 2024
Pt c/o mild incisional pain, otherwise feels well
Objective Data
-
Lab Results
05/25/24 04:20
05/25/24 04:20
PT 13.7 Sec (11.4-14.6) 05/21/24 10:30
INR 1.02 05/21/24 10:30
APTT 29.1 Sec (23.4-35.0) 05/21/24 10:30
Vital Signs
Vital Signs
Temp Pulse Resp BP Pulse Ox
98.7 F 75 16 129/48 90
05/25/24 04:23 05/25/24 04:08 05/25/24 04:23 05/25/24 04:08 05/25/24 04:23
CT Intake/Output/Weight
05/24/24 05/24/24 05/25/24
06:59 18:59 06:59
Intake Total 100 / 390
Output Total 600 / 600
Balance 100 / 390 -590 / -590
SaO2: 91 (2L)
Physical Exam
-
General: Awake, Oriented and AOx3
Cardiovascular: Regular rate & rhythm, No Murmurs, No Rub and No Gallop
Respiratory: Decreased Breath Sounds (with basilar crackles)
Sternum: Stable
Incision: Clean, Dry, Intact and Dressing Intact
Extremities: Edema +2
Data Reviewed
-
Lab Results: Results Reviewed
Medications: Active Meds Reviewed
Chest X-Ray: Report Reviewed and Image Reviewed
ECG: Report Reviewed and Image Reviewed
[2024-05-25] MEDS: TYLENOL 1000 MG PO (06:30)
[2024-05-25] MEDS: SYMBICORT 80/4.5 MCG INHALER 2 PUFF INH ×2 (08:19→19:35)
[2024-05-25] MEDS: SPIRIVA RESPIMAT 2.5 MCG 2 PUFF INH (08:19)
--- NOTE | 2024-05-25 08:30 | PTCARENOTE ---
Patient received from cotton washer resting oob in chair, AAO X 3, denies pain. NSR via cm, SaO2 @ 95% on 1lnc. All procedural sites stable. Dr. Mendoza and CT team to bedside for am rounds, patient updated to plan of care for the day, in agreement. See
work list for full assessment and interventions performed.
[2024-05-25] MEDS: ISMO 10 MG PO ×2 (08:48→20:17)
[2024-05-25] MEDS: LOW STRENGTH ASPIRIN 81 MG PO (08:48)
[2024-05-25] MEDS: PROTONIX 40 MG PO (08:48)
[2024-05-25] MEDS: APRESOLINE 100 MG PO ×2 (08:48→20:17)
[2024-05-25] MEDS: PROCARDIA XL (EXTENDED RELEASE) 30 MG PO ×2 (08:48→20:17)
[2024-05-25] MEDS: COZAAR 100 MG PO (08:49)
[2024-05-25] MEDS: BACTROBAN 2% OINTMENT 1 APPLIC NASAL (08:49)
[2024-05-25] MEDS: SENOKOT-S 1 TABLET PO ×2 (08:49→20:17)
[2024-05-25] MEDS: NSS IV (08:51)
[2024-05-25] MEDS: BUMEX 1 MG PO (09:27)
[2024-05-25] MEDS: BUMEX 2 MG IV (10:09)
--- NOTE | 2024-05-25 10:33 | CM ---
Reviewed chart. Met with Mrs. Albert to review discharge plans. She states she is feeling better and maybe able to go home soon. We reviewed a home visit by the Transitional Care Nurse. He is agreeable to a home visit. Prior to admission she
resides alone in a [facility] apartment with an elevator to get to the third floor. Prior to admission she ambulated with a rolling walker. She ambulated 200 feet with a rolling walker today. She has two walkers at home. She states she has
neighbors that can check on her at home. Medical work-up in progress. The discharge plan is to return home with a home visit by the Transitional Care Nurse when medically stable.
[2024-05-25] MEDS: TYLENOL PO ×2 (14:35→22:34)
--- NOTE | 2024-05-25 15:14 | W.PN.CARDCBS ---
Today's Communication / Plan
-
try low dose amio for 6 weeks but if limited by bradycardia ok to stop
switch to po bumex
nearing discharge
Impression / Plan
-
.
PCP: Dr. Bobo
Dental Detail Representative: Dr. Andres ([facility])
Impression:
s/p BUCK exclusion w/ #40 mm Pro2 Clip
Persistent AFib
s/p PVI x2 (01/2019, 04/2019)
h/o aborted watchman implant 04/20/24
Chronic diastolic HFpEF
HTN
HLD
COPD
LUIZ
Ambulatory dysfunction/gait disturbance
Chronic BLE lymphedema
R BrCA, s/p lumpectomy/LND (2015)
Asymptomatic sinus bradycardia
Paroxysmal atrial tachycardia postoperatively
Plan:
-Previously attempted Watchman procedure 04/20/2024, however ADELAIDA probe was unable to pass despite multiple attempts and therefore procedure was aborted. Now s/p BUCK exclusion 05/21/2024 w/ Dr. Mendoza.
Cont post op care
Cont gentle diuresis with Bumex. Received Bumex IV AM May 24. Her weight is now at baseline I no objection to switching to her outpatient Bumex dose
Will resume low dose amiodarone today 200mg daily and continue for 6 weeks total if she can tolerate from a heart rate perspective given the paroxysmal atrial arrhythmia noted today
No requirement for permanent pacing
Continue hydralazine, Isosorbide, nifedipine.
Follow up w/ Dr. Andres
Appears to be nearing discharge
Progress Note - Dental Detail Representative
Subjective
Date of Service: May 25, 2024
feels well
Objective
Labs:
05/25/24 04:20
05/25/24 04:20
Labs
Hgb 10.0 g/dL (12.0-16.0) L 05/25/24 04:20
Hct 31.0 % (37.0-47.0) L 05/25/24 04:20
Plt Count 204 10^3/uL (130-400) 05/25/24 04:20
PT 13.7 Sec (11.4-14.6) 05/21/24 10:30
INR 1.02 05/21/24 10:30
APTT 29.1 Sec (23.4-35.0) 05/21/24 10:30
Sodium 141 mmol/L (135-145) 05/25/24 04:20
Potassium 4.2 mmol/L (3.5-5.1) 05/25/24 04:20
BUN 41 mg/dl (7-17) H 05/25/24 04:20
Creatinine 1.2 mg/dL (0.6-1.0) H 05/25/24 04:20
Glucose 95 mg/dl (70-99) 05/25/24 04:20
Vital Signs and I&O:
Vital Signs
Temp Pulse Resp BP Pulse Ox
98.2 F 71 19 150/45 92
05/25/24 12:20 05/25/24 15:00 05/25/24 12:20 05/25/24 12:17 05/25/24 12:20
Vital Signs
Temp Pulse Resp BP Pulse Ox
98.2 F 71 19 150/45 92
05/25/24 12:20 05/25/24 15:00 05/25/24 12:20 05/25/24 12:17 05/25/24 12:20
Intake & Output
05/23/24 05/24/24 05/25/24 05/26/24
06:59 06:59 06:59 06:59
Intake Total 81.7 / 81.7 390 / 390 10 400 / 400
Output Total 100 / 100 600 / 600 825 / 825
Balance -18.3 / -18.3 390 / 390 -590 / -590 -425 / -425
Physical Exam
Physical Exam
heent ncat
jvp 6
cor regular
left cordis noted
incision cdi
[2024-05-25] MEDS: PACERONE 200 MG PO ×2 (15:41→20:17)
--- NOTE | 2024-05-25 15:55 | PTCARENOTE ---
Patient VS obtained, stable. Assisted to bathroom, +BM. Settled to chair, perusing menu. Denies pain.
[2024-05-25] MEDS: LIPITOR 10 MG PO (17:50)
--- NOTE | 2024-05-25 20:00 | PTCARENOTE ---
Received patient at 1900. Patient AOx3, pleasant, OOB to chair, no present c/o pain. SR rate 70's on the monitor, palpable pulses throughout, +4 B/L LE pitting edema with domingo wraps on lower legs. On 1LNC, lungs diminished at the bases, IS
encouraged. Patient tolerated dinner, took PO medications without issues, round obese abdomen, good BS, SNT. Voids spontaneously clear, yellow urine in the toilet. RUE restriction, pink wristband in place. LAC PIV#18 intact. Patient uses own RW OOB
at baseline. VSS, see nursing interventions for details.
[2024-05-26] VITALS (9 sets, daily range): BP systolic 126–148; BP diastolic 41–65; PULSE 89; O2SAT 79–94; BMI 34.9
--- NOTE | 2024-05-26 00:34 | PTCARENOTE ---
Patient in bed, no acute issues, assessment unchanged, VSS.
--- NOTE | 2024-05-26 04:18 | PTCARENOTE ---
Patient sleeping in bed. VSS, patient ambulated to the bathroom with assistance. Assessment unchanged.
[2024-05-26] MEDS: TYLENOL PO ×2 (04:33→13:38)
--- NOTE | 2024-05-26 06:16 | W.PN.CT ---
Today's Communication / Plan
-
Plan:
-No major issues overnight. Hemodynamically and neurologically intact
-No further a-fib, NSVT, or bradycardia overnight. On Amiodarone 200 mg BID per Cardiology. Has loop recorder implanted since 06/2003 from [facility]. Currently NSR @ 78 bpm
-BB currently on hold
-No need for PPM per EP evaluation
-Cr pending this AM, was 1.2 yesterday, was 1.0 preop. On Bumex 1 mg PO. Received 1mg PO and 2mg IV yesterday. O2 requirement decreased to 1L NC, sats 91% on 1L, 88% on RA yesterday
-CTA angio on 05/22 confirmed an occluded BUCK. Will not require NOAC/DOAC
-Control BP, on Hydralazine, Nifedipine, Isosorbide, Bumex, and Losartan
-Wean off of O2
-Encourage use of IS
-OOB into chair/Ambulate
-Likely home tomorrow
Assessment / Plan
-
Assessment:
-S/P Robotic assisted left atrial appendage exclusion (40mm Pro2 Clip), by Dr. Mendoza, 05/21/24, pod#5
-History of persistent atrial fibrillation status post endovascular ablation, successful
-On chronic anticoagulation, intolerant with recurrent GI bleeds
-COPD, moderately disease
-LUIZ
-History of diastolic CHF with chronic peripheral LE edema and volume overload
-LVEF 60-65%
-Mild MR/TR
-Basal cell carcinoma of the face
-Melanoma of the left arm
-Right BrCA, s/p lumpectomy/LND (2015)
-Class 2 obesity (BMI 35.2)
-Hypertension
-Hyperlipidemia
-Renal insufficiency
-GERD/Hiatal hernia
-S/P aborted watchman procedure 04/20/24
-S/PPVI x2 (01/2019, 04/2019)
-S/P loop recorder implant, 06/2023 @ [facility]
-Acute postop bradycardia
-Acute postop NSVT
-Acute postop BRAYAN
-Acute postop pulmonary insufficiency
Discussed patient care with: Cardiology, Nursing, Respiratory Therapy, Pharmacy and Care Team
Subjective
Procedure
-S/P Robotic assisted left atrial appendage exclusion (40mm Pro2 Clip), by Dr. Mendoza, 05/21/24
-
Date of Service: May 26, 2024
Objective Data
-
PT 13.7 Sec (11.4-14.6) 05/21/24 10:30
INR 1.02 05/21/24 10:30
APTT 29.1 Sec (23.4-35.0) 05/21/24 10:30
Vital Signs
Vital Signs
Temp Pulse Resp BP Pulse Ox
98.8 F 74 16 126/65 91
05/26/24 04:18 05/26/24 04:06 05/26/24 04:18 05/26/24 04:06 05/26/24 04:06
CT Intake/Output/Weight
05/25/24 05/25/24 05/26/24
06:59 18:59 06:59
Intake Total 650 / 680 30 / 680
Output Total 825 / 1225 400 / 1225
Balance -175 / -545 -370 / -545
SaO2: 91 (RA)
Physical Exam
-
General: Awake, Oriented and AOx3
Cardiovascular: Regular rate & rhythm, No Murmurs, No Rub and No Gallop
Respiratory: Decreased Breath Sounds
Sternum: Stable
Incision: Clean, Dry, Intact and Dressing Intact
Extremities: Edema +2
Data Reviewed
-
Lab Results: Results Reviewed
Medications: Active Meds Reviewed
Chest X-Ray: Report Reviewed and Image Reviewed
ECG: Report Reviewed and Image Reviewed
[2024-05-26 06:36] LABS: Hematocrit 31.6 % (37.0-47.0); Hemoglobin 10.2 g/dL (12.0-16.0); Mean Corp Hgb Conc. 32.3 g/dL (33.0-37.0); Mean Corpuscular Hgb 29.8 pg (27.0-31.0); Mean Corpuscular Volume 92.4 fL (81.0-99.0); Mean Platelet Volume 11.8 fL (7.4-10.4); Platelet Count 190 10^3/uL (130-400); Red Blood Cell Count 3.42 10^6/uL (4.20-5.40); Red Cell Dist. Width 14.8 % (11.5-14.5); White Blood Cell Count 7.9 10^3/uL (4.8-10.8)
[2024-05-26 06:56] LABS: Blood Urea Nitrogen 35 mg/dl (7-17); Calcium 8.7 mg/dl (8.4-10.2); Carbon Dioxide 29 mmol/L (22-30); Chloride 104 mmol/L (98-107); Estimated Creatinine Clearance 45 ml/min; Glucose 100 mg/dl (70-99); Magnesium 2.3 mg/dl (1.6-2.3); Potassium 3.9 mmol/L (3.5-5.1); Sodium 140 mmol/L (135-145); eGFR 51.75
--- NOTE | 2024-05-26 07:04 | DOWNTIME ---
There was a [employer] Downtime on 05/26/2024 from 0100 to 05/26/2024 at 0350. Downtime documentation of patient's care, including medication administrations, has been reconciled in the electronic record per guidelines. Refer to the
patient's paper chart under the miscellaneous tab to see printed paper medication records and downtime forms.
[2024-05-26] MEDS: SPIRIVA RESPIMAT 2.5 MCG 2 PUFF INH (07:23)
[2024-05-26] MEDS: SYMBICORT 80/4.5 MCG INHALER 2 PUFF INH (07:23)
[2024-05-26] MEDS: SENOKOT-S PO (08:20)
[2024-05-26] MEDS: APRESOLINE 100 MG PO (08:21)
[2024-05-26] MEDS: PROCARDIA XL (EXTENDED RELEASE) 30 MG PO (08:21)
[2024-05-26] MEDS: PROTONIX 40 MG PO (08:21)
[2024-05-26] MEDS: ISMO 10 MG PO (08:21)
[2024-05-26] MEDS: LOW STRENGTH ASPIRIN 81 MG PO (08:21)
[2024-05-26] MEDS: KCL 20 MEQ PO (08:21)
[2024-05-26] MEDS: PACERONE 200 MG PO (08:21)
[2024-05-26] MEDS: BUMEX 1 MG IV (08:22)
[2024-05-26] MEDS: COZAAR 100 MG PO (08:22)
--- NOTE | 2024-05-26 08:57 | PTCARENOTE ---
Received patient from shield runner RN; AAOx3, responds spontaneously to RN and follows commands; VSS; SR with 1st AVB on monitor; +1 DP pulses and +2 radial pulses; Lungs diminished throughout with fine crackles left base; SpO2 86-91% on RA - placed
on 0.5 L NC O2 and now 89-91%; IS 1000 ml; Normoactive BS - BM this AM with previous shift RN; Urinating in bathroom; Surgical sites intact; PIV #18 LAC; Patient denies any pain at this time; PO Potassium and IV Bumex 1 mg ordered and given; See
nursing documentation for further details.
[2024-05-26] MEDS: NSS IV (09:10)
--- NOTE | 2024-05-26 11:17 | W.PN.PUL3 ---
Today's Communication / Plan
-
Continue inhalers
Okay to discharge from my perspective
Set up oxygen therapy
Patient has a nebulizer at home, I will send a prescription for albuterol ipratropium for her to use at least once or twice a day until oxygen needs resolved.
Short-term follow-up with pulmonary
Encouraged to use incentive spirometry at home.
Assessment
-
78-year-old female with a history of COPD, obstructive sleep apnea, morbid obesity, hypertension and hyperlipidemia who has persistent atrial fibrillation status post ablation on chronic anticoagulations intolerant due to recurrent GI bleeds and not
a Watchman procedure candidate underwent robotic assisted left atrial appendage exclusion-planer setter consulted for postoperative ventilator/critical care management 05/21/2024.
Pulmonary reconsulted 05/26/2024 for persistent hypoxemia
Hypoxemic respiratory failure: Suspect due to subsegmental atelectasis.
History of COPD: Not bronchospastic on exam
Persistent atrial fibrillation-intolerant to chronic anticoagulation due to recurrent GI bleeds and failed/aborted Watchman procedure (inability to pass ADELAIDA probe)
Status post robotic assisted left atrial appendage exclusion-Dr. Mendoza-05/21/2024
Mild anemia-hemoglobin 11.7
Hyperglycemia
Conditions present prior to admission:
Hypertension.
Hyperlipidemia.
Morbid obesity.
LUIZ-CPAP intolerant-stopped wearing 08/2023
COPD-never smoker, suspect chronic asthma, maintained on Trelegy 100 and albuterol
Atrial fibrillation/ablation/anticoagulation intolerance due to recurrent GI bleeds.
Recurrent GI bleeds.
Melanoma left arm.
Breast cancer/lumpectomy 2016
Assessment and plan:
I was reconsulted to evaluate patient on 05/26/2024 for persistent hypoxemia despite diuresis.
Patient lung exam is clear
Does not feel more short of breath than usual
Ambulatory test: Requiring up to 3 L with ambulation, she ambulated with a walker. Patient did not require any oxygen supplementation at rest.
-
Most recent chest x-ray 05/25/2024 with persistent subsegmental atelectasis.
CT angiogram of the chest 05/22/2024: Showed subsegmental atelectasis.
-
There is no evidence for acute exacerbation of COPD
As it is noted her last walking test at our office did not show any oxygen needs.
Oxygen requirement likely related to subsegmental atelectasis on top of COPD/immobility/obesity/kyphosis.
Patient has diuresed well and her weight is lower.
Continue diuresis at your discretion
-
At this point should restart her usual inhalers.
She has a nebulizer at home: I will send a prescription for DuoNebs for patient to use at least once or twice a day until oxygen can be weaned off.
Advised to continue using incentive spirometer.
Increase physical activity as able.
Outpatient pulmonary follow-up in about [address] Franco to retest oxygen needs
-
From my perspective there is no indication for systemic corticosteroids
Okay to discharge home today with oxygen supplementation, this will be retested in the outpatient setting
Imaging reviewed:
Chest x-ray 05/21/2024-no evidence for significant pneumothorax, mild subcutaneous emphysema
Pulmonary function studies-05/13/24: Spirometry demonstrated mild restrictive lung disease.� The forced vital capacity was 1.65 L or 66% of predicted.� The FEV1 was 1.36 L or 79% of predicted.� The FEV1/FVC ratio was 82%.� Lung volumes revealed
moderate restrictive lung disease the total lung capacity was 2.88 L or 62% of predicted.� The diffusing capacity was moderately reduced at 7.7 or 41% of predicted.� This was consistent with a moderate gas exchange deficit. When adjusted for
alveolar volume, the diffusing capacity improves to 66% predicted.�Compared to 10/2023, the forced vital capacity has improved from 1.56 L to 1.65 L.� The FEV1 has improved from a 1.23 L to 1.36 L.
6 minute walk test-05/13/24: Resting saturation was 100%.� Lowest saturation was 94% ambulating 525 feet.� Maximum heaart rate waas 117 bpm.� Her perceived dyspnea was negligible and 0 on a 10 point dyspnea scale
Chest x-ray-09/17/20: No acute lung disease..
CT chest ([facility]) 02/05/24: Images reviewed.Enlargement of the main pulmonary artery suggesting pulmonary hypertension.� Mild mediastinal and bilateral hilar lymphadenopathy.Mild bilateral lung hyperinflation.Severe mosaic attenuation pattern
throughout both lungs.� No airspace opacity..
Echocardiogram-04/10/23: Normal LVEF 65-70% with mild to moderate mitral regurgitation mild to moderate tricuspid regurgitation.� PA pressures estimated at 75 mmHg.� (PA pressures were 65 mmHg 10/29/18 echo.
Subjective Data
-
Date of Service:
Date of Service: May 26, 2024
Chief Complaint: Pulmonary Follow Up (Hypoxemia)
Subjective:
Patient denies any worsening shortness of breath, cough or wheezing
Recovering from surgery
Denies any pain
Able to take deep breath
Review of Systems
General: Fever (n)
Cardiopulmonary: Dyspnea (none at rest)
GI: Abdominal Pain (n) and Nausea (n)
Objective Data
Data Reviewed
Vital Signs / I&O / Oxygen:
Vital Signs
Temp Pulse Resp BP Pulse Ox
98.4 F 66 16 148/51 87
05/26/24 07:37 05/26/24 08:00 05/26/24 07:37 05/26/24 07:38 05/26/24 08:50
Intake and Output
05/25/24 05/26/24 05/27/24
06:59 06:59 06:59
Intake Total 680 / 680 170 / 170
Output Total 600 / 600 1225 / 1225 200 / 200
Balance -590 / -590 -545 / -545 -30 / -30
SaO2 87
Nasal Cannula flow liters per 1
minute
Physical Exam
General: Comfortable
HEENT: Normocephalic
Cardiovascular: S1-S2
Respiratory: Wheeze (n) and Other (Good air movement)
GI: Soft and Non Distended
Neurology: Awake, Alert, Oriented, AO x 3 and No Motor Deficits
Skin: Good Color
Labs/Micro/Reports
Lab Data
05/26/24 06:06
05/26/24 06:06
--- NOTE | 2024-05-26 11:26 | W.PN.UPDATE ---
Update Note
Progress Note Update
Home O2 eval revealed that patient requires oxygen at rest and with activity. Oxygen level was 87% on room air and required up to 3LNC during ambulation.
--- NOTE | 2024-05-26 11:40 | CM ---
Addendum entered by Meggan Tena 05/26/24 16:07:
Received call back from [facility] management. [employer] approved inpatient acute rehab. at [place] at [facility]. The auth. number is [id number]. with NRD due on 06/01/24. Needs to call with verbal update to [phone]. The discharge plan
is to go to [place] [facility]. at [facility] tomorrow if medically stable.
Original Note:
Reviewed chart. Met with Mrs. Albert to review discharge plans. Reviewed she will need home 02. She is agreeable to home 02. Telephone call to [employer] Liaison to make the referral. Sent the referral. Hopefully portable tank will
be delivered here this afternoon. Prior to admission she resides alone in a third floor senior apartment. She has a elevator to get to her apartment. Prior to admission she ambulates with a rolling walker. She has two walkers at home. She has a
prescription plan. We reviewed a home visit by the Transitional Care Nurse. She is agreeable to a home visit. Medical work-up in progress. The discharge plan is to return home with home 02 and a home visit by the Transitional Care Nurse when
medically stable.
--- NOTE | 2024-05-26 12:42 | PTCARENOTE ---
Patient ambulating to bathroom with RN with assist x1 with RW. Patient BENNETT and pulse ox found to be 79% on 1L NC when returning to chair. Patient recovered to 91% when resting in chair. GIORGI Wilde notified and aware - Pulmonary consulted and home
oxygen assessment ordered. Patient will require home oxygen following assessment with RT. CM waiting to hear back from home oxygen company regarding supplies.
--- NOTE | 2024-05-26 14:30 | PTCARENOTE ---
Assumed care of pt; pt resting comfortably in chair; NSR on monitor and VSS; discussed with CVNP on discharge and awaiting orders.
--- NOTE | 2024-05-26 14:40 | W.DCSUMMARY ---
Discharge Summary
Discharge Data
Date of Admission: 05/21/24
Date of Discharge: 05/26/24
Total time spent discharging patient (in min): 40
-
Pending Results: No
Hospital Course
Primary care physician:
Dr. Shahbaz Bobo
Outpatient spool tender:
Dr. De La Cruz
Inpatient consultants:
DCA, chief investigator, pulmonary
Procedures:
1. Robotic assisted left atrial appendage exclusion (40mm Pro2 Clip)
Primary Diagnosis:
1. Atrial fibrillation on anticoagulation, intolerant, unable to perform Watchman Procedure
Secondary Diagnoses:
1. History of persistent atrial fibrillation status post endovascular ablation, successful
2. On chronic anticoagulation, intolerant with recurrent GI bleeds
3. Chronic obstructive pulmonary disease, moderately disease
4. Obstructive sleep apnea
5. History of CHF with chronic peripheral edema and volume overload
6. Basal cell carcinoma of the face
7. Melanoma of the left arm
8. Morbidly obese with BMI of greater than 30
9. Hypertension
10. Hyperlipidemia
HPI: 78-year-old female who has a history of persistent atrial fibrillation. She is status post ablation with good result. Following the procedure her Holter monitor demonstrated a atrial fibrillation burden of less than 1% and only 1 isolated
single episode that resolved. She was planned for a Watchman procedure however given her anatomy the ADELAIDA probe was unable to be passed and so the procedure was aborted as it could not be done blindly. She is referred to Dr. Mendoza for consideration
of a left atrial appendage exclusion given her history of GI bleeds that were recurrent and her intolerance of anticoagulation. Therefore, she presented electively on 05/21 for surgery.
Hospital course: Patient was electively admitted on 05/21 for her left atrial appendage clip. She was extubated in the OR postoperatively and returned to the CVICU for the remainder of her care. She was started on Cardene for hypertension and
amiodarone was initially held for sinus arrhythmia. She was also diuresed with Lasix postoperatively. On 05/22 postoperative day 1 patient amiodarone was placed on hold because her heart rate dropped to the 30s while sleeping and had a 12 beat and
6 beat run of NSVT while sleeping. Since they were unable to do a T EE intraoperatively she was sent for a CTA of the chest which showed that the left atrial appendage was occluded. When she returned to the CVICU her chest tube was removed and she
was diuresed with Bumex. On 05/23 postoperative day 2 patient was still requiring 2 L of oxygen chest x-ray was performed and she was diuresed with Bumex twice daily. Due to her hypertension losartan was restarted. On 05/24 postoperative day 3,
Bumex 2 mg twice daily was redosed. Cordis was removed and two-view chest x-ray was stable. She was resumed on her home hypertensive meds however she remained hypertensive with her systolic blood pressures up into the 180s so her nifedipine was
changed to twice daily instead of daily. On 05/25 postoperative day 4 patient was trialed on room air however her saturations dropped to 88%. She was again diuresed with Bumex 2 mg twice daily and restarted on her home dose of Bumex. Amiodarone
was resumed at 200 mg twice a day per cardiology due to atrial fibrillation and NSVT. On 05/26 postoperative day 5, patient was diuresed with 2 mg of IV Bumex again. She was again trialed on room air however her oxygen saturations dropped to 85%
on room air. Pulmonary was consulted and said that she was okay to go home on supplemental oxygen while she recovers from some atelectasis. Overall she was deemed stable for discharge home and upon discharge amiodarone was decreased to 200 mg
daily.
Home medication changes:
See below
Discharge Plan
-
Patient Disposition: Home (Routine Discharge)
Discharge Diagnosis/Procedures: Robotic assisted left atrial appendage exclusion (40mm Pro2 Clip)
Condition: Fair
Diet: Low Fat and Low Sodium
Activity: As tolerated
Driving Restrictions: No driving for 2 weeks
Bathing Restrictions: OK to Shower
Specialty Instructions: Weigh Daily- Call MD for wt gain/loss 3 lbs overnight/5 lbs in 1 week
Activity Restrictions/Additional Instructions:
ACTIVITY:
-No strenuous activity: no heavy lifting, pushing, pulling anything over 15 pounds for 2 weeks
-continue to use stairs as tolerated
DRIVING RESTRICTIONS:
-No driving for 2 weeks or until approved by your surgeon
WOUND CARE:
-Shower daily. Use soap & water.
-No lotions, creams or powders on incision area.
DIET:
-continue a low fat/low cholesterol diet.
-IF you are diabetic, continue carb controlled diet.
SPECIALTY INSTRUCTIONS:
-Weigh yourself daily. Call your physician for any weight gain/loss of 3 lbs overnight or 5 lbs in one week.
-REPORT any clicking noise or uneven appearance of your sternum to your surgeon immediately.
-If you smoke, you are instructed to quit. The [place] smoking hotline phone number is [phone]
Referrals:
CT Transitional Care Nurse [Outside] (The Cardiothoracic Transitional Care Nurse will call you to set up a visit in 1-2 days.)
Yousuf Bobo MD [Family Provider] -
Giuliano Franco MD [Active] - in two weeks
Carmelo De La Cruz MD [Non-Admitting Privileges] - 07/01/24 1:40 pm
Alex Mendoza MD [Active] - 06/17/24 2:30 pm
Additional Discharge Medication Instructions: Stop xarelto
Prescriptions:
New
nifedipine 30 mg Tablet Extended Release
30 mg PO BID Qty: 90 1RF
aspirin 81 mg Tablet,Chewable
81 mg PO DAILY Qty: 0 0RF
acetaminophen 325 mg Tablet
650 mg PO Q4HPRN PRN (Reason: mild pain,headache,temp >101F ) Qty: 0 0RF
amiodarone 200 mg Tablet
200 mg PO DAILY Qty: 60 1RF
Continued
lovastatin 40 mg Tablet
40 mg PO QPM
hydralazine 100 mg Tablet
100 mg PO BID
ferrous sulfate 325 mg (65 mg iron) Tablet
325 mg PO DAILY
bumetanide 1 mg Tablet
1 mg PO SUTUTHSA
isosorbide mononitrate 10 mg Tablet
10 mg PO BID
losartan 100 mg Tablet
100 mg PO DAILY
Trelegy Ellipta 100-62.5-25 mcg Blister With Device
1 inh INHALATION DAILY
Held
anastrozole 1 MG tablet
1 mg PO DAILY
Hold Instructions: Resume on 06/07/24.
Discontinued
nifedipine 30 mg Tablet Extended Release
30 mg PO DAILY
Xarelto 20 mg Tablet
20 mg PO QPM
Discharge Orders:
Discharge Patient (As Directed); Ordered 05/26/24
Ordered By: Susie Kwong
Care Plan Goals
Care Plan Goals:
Problem: Readiness for enhanced knowledge related to diagnosis and treatment plan
Goal: Understand your diagnosis and treatment plan needs, including medications if applicable.
Instructions: Know your diagnosis, underlying causes and treatment plan options, including medications if applicable. Consult with your health care team to learn about your diagnosis and treatment plan, including medications if applicable.
Discharge Date and Time
Discharge Date/Time: 05/26/24 16:36
Print Language: TURKISH
--- NOTE | 2024-05-26 16:08 | PTCARENOTE ---
CHG bath provided; quality assurance monitor removed and PIV x1 removed; discharge instructions gone over with pt and daughter at bedside and all questions answered; instructed pt to call home oxygen company when home for further oxygen delivery.
== END 2024-05-26 16:36 | disposition home or self-care (01) | DRG 273 ==
LOC: CVICU 05:00
PROVIDERS: Clinical Nurse Specialist Acute Care; Nurse Practitioner; ADMITTING PHYSICIAN Thoracic Surgery (Cardiothoracic Vascular Surgery); CONSULT PHYSICIAN Internal Medicine Critical Care Medicine; FAMILY PHYSICIAN Family Medicine
PROC: 02L70CK Occlusion of Left Atrial Appendage with Extraluminal Device, Open Approach (ICD-10-PCS; 2024-05-21)
PROC: 8E0W0CZ Robotic Assisted Procedure of Trunk Region, Open Approach (ICD-10-PCS; 2024-05-21)
DX: I48.19 Other persistent atrial fibrillation (principal); J95.1 Acute pulmonary insufficiency following thoracic surgery; I50.32 Chronic diastolic (congestive) heart failure; N17.9 Acute kidney failure, unspecified; J98.11 Atelectasis; J44.9 Chronic obstructive pulmonary disease, unspecified; G47.33 Obstructive sleep apnea (adult) (pediatric); I11.0 Hypertensive heart disease with heart failure; E78.00 Pure hypercholesterolemia, unspecified; E66.812 Obesity, class 2; I89.0 Lymphedema, not elsewhere classified; I47.20 Ventricular tachycardia, unspecified; K21.9 Gastro-esophageal reflux disease without esophagitis; K44.9 Diaphragmatic hernia without obstruction or gangrene; I08.1 Rheumatic disorders of both mitral and tricuspid valves; R00.1 Bradycardia, unspecified; D64.9 Anemia, unspecified; Y83.8 Other surgical procedures as the cause of abnormal reaction of the patient, or of later complication, without mention of misadventure at the time of the procedure; Z68.34 Body mass index [BMI] 34.0-34.9, adult; Z79.01 Long term (current) use of anticoagulants; Z79.899 Other long term (current) drug therapy
CPT/HCPCS: 36415; 71045; 71046; 71275; 80048; 80053; 81003; 81015; 82248; 82330; 82565; 82805; 82947; 82962; 83036; 83735; 83880; 84132; 84302; 84520; 85014; 85018; 85025; 85027; 85049; 85610; 85730; 86850; 86900; 86901; 86920; 87070; 87086; 93005; 93880; 94640; Q9967

== ENCOUNTER → 2024-06-04 15:55 | Outpatient (REF) | payer OTHER, SELFPAY | LOC: RAD 15:55 | PROVIDERS: ATTENDING PHYSICIAN Internal Medicine Critical Care Medicine | DX: J44.9 Chronic obstructive pulmonary disease, unspecified (principal); J98.11 Atelectasis; R06.02 Shortness of breath | CPT/HCPCS: 71046 ==

== ENCOUNTER → 2024-11-12 11:41 | Outpatient (REF) | payer OTHER, SELFPAY | LOC: RAD 11:41 | PROVIDERS: ATTENDING PHYSICIAN Internal Medicine Critical Care Medicine; FAMILY PHYSICIAN Family Medicine | DX: J44.9 Chronic obstructive pulmonary disease, unspecified (principal); R06.89 Other abnormalities of breathing; R09.02 Hypoxemia; Z99.81 Dependence on supplemental oxygen | CPT/HCPCS: 71046; 71250; 78582; A9540; A9567 ==